=== PATIENT | male | born 1960 | race African-American/Black ===

== ENCOUNTER → 2017-07-22 10:10 | Outpatient (CLI) | payer OTHER, SELFPAY ==
--- NOTE | 2017-07-22 10:18 | RAD_ITS ---
STUDY: X-RAY - ABDOMEN/PELVIS REASON FOR EXAM: Male, 56 years old. Pain TECHNIQUE: Two AP supine views of the abdomen and pelvis. COMPARISON: None. FINDINGS: Normal visualized lung bases. There is a moderate amount of colonic fecal material. There is no demonstrated free abdominal air. The visualized liver, spleen and kidneys are grossly normal in size and morphology. Normal soft tissue structures. Normal visualized osseous structures. RAD/Abdomen Single View IMPRESSION: Mild constipation. Electronically Signed: Keith Shipley DO at 21:58 EST , Service support ,
== END ==
PROVIDERS: Family Provider Family Medicine; PCP Family Medicine; Visit Provider Family Medicine
DX: K59.00 Constipation, unspecified (principal)
CPT/HCPCS: 74018

== ENCOUNTER → 2017-10-10 09:14 | Outpatient (CLI) | payer OTHER, SELFPAY ==
[2017-10-10 09:18] LABS: Bacteria 0 SEEN /hpf (None Seen); Mucous, Urine 0 SEEN /hpf (<or=2+); Red Blood Cells-Urine 0 SEEN /hpf (0-5); Squamous Epithelial Cells - UA 0 SEEN /hpf (0-5)
[2017-10-10 12:12] LABS: Color, Urine Yellow (Yellow); Glucose, Dipstick Normal (Normal); Ketone-Dipstick Negative (Negative); Leukocyte Esterase-Dipstick Negative /ul (Negative); Nitrite-Dipstick Negative (Negative); Occult Blood-Urine Negative /ul (Negative); Protein-Dipstick 30 mg/dl (Negative); Specific Gravity, Urine 1.015 (1.002-1.030); Urine Bilirubin Dipstick Negative (Negative); Urine Clarity Clear (Clear); Urine Urobilinogen 1 mg/dl (Normal); Urine pH 6.5 (5.0 - 8.0)
[2017-10-10 12:19] LABS: Absolute Lymphocyte Count 1.72 X10^3/ul (0.83-4.51); Absolute Neutrophil Count 2.2 X10^3/uL (2.0-7.7); Basophil# 0.01 X10^3/uL; Basophil% 0.2 % (0-1); Eosinophil# 0.13 X10^3/uL; Eosinophils% 2.7 % (0-5); Hematocrit 47.9 % (40-54); Hemoglobin 16.3 g/dl (13.0-16.5); Lymphocyte # 1.72 X10^3/ul (4.0); Lymphocyte % 35.1 % (19-41); Mean Corpuscular Hgb 31.5 pg (27.0-32.0); Mean Corpuscular Volume 92.6 fL (80-94); Mean Platelet Vol. 10.6 fl (6.2-12.0); Monocyte# 0.88 X10^3/uL; Neutrophil # 2.15 X10^3/uL (2.7-7.7); Neutrophil % 43.8 % (47-70); Platelet Count 259 K/mm3 (150-450); RBC Distribution Width CV 13.5 % (11.6-14.6); RBC Distribution Width SD 45.1 fl (35.1-43.9); Red Blood Count 5.17 M/mm3 (4.6-6.2); White Blood Count 4.9 K/mm3 (4.4-11.0)
[2017-10-10 12:20] LABS: White Blood Cells 0-5 SEEN /hpf (0-5)
[2017-10-10 12:29] LABS: ALB/GLOB Ratio 0.8 RATIO (0.9-2.4); AST(SGOT) 14 U/L (15-37); Alanine Aminotransfer ALT/SGPT 41 U/L (16-61); Albumin, Serum 3.5 g/dL (3.2-5.0); Alkaline Phosphatase 80 U/L (45-117); Anion Gap 7 (5-15); BUN 12 mg/dL (7-18); BUN/Creat Ratio 9.7 RATIO (10-20); Calcium,Total 8.7 mg/dL (8.5-10.1); Chloride 105 mmol/L (98-107); Cholesterol 247 mg/dL (200); Creatinine, Serum 1.24 mg/dL (0.70-1.30); EST Glomerular Filtration Rate 64 mL/min (>60); Est Glom Filt Rate - Afr Amer 78 mL/min (>60); Globulin 4.2 g/dL (2.2-4.2); Glucose 147 mg/dL (74-106); High Density Lipoprotein 49 mg/dL; Potassium 4.1 mmol/L (3.5-5.1); Protein, Total 7.7 g/dL (6.4-8.2); Sodium Level 140 mmol/L (136-145); Triglycerides 133 mg/dL; Very Low Density Lipoprotein 27 mg/dL (5-40)
[2017-10-10 12:31] LABS: POSITIVE COUNT NO; POSITIVE DIFFERENTIAL NO; POSITIVE MORPHOLOGY NO
[2017-10-10 12:35] LABS: Microalbumin:Creatinine Ratio 9.7 mg/g CRE (<30 mg/g CRE)
[2017-10-10 13:02] LABS: Hemoglobin A1c 7.7 % (4.2-6.3)
== END ==
PROVIDERS: Family Provider Family Medicine; PCP Family Medicine; Visit Provider Family Medicine
DX: I10 Essential (primary) hypertension (principal); E11.9 Type 2 diabetes mellitus without complications; N52.9 Male erectile dysfunction, unspecified; R51 Headache; R42 Dizziness and giddiness
CPT/HCPCS: 36415; 80053; 80061; 81001; 82043; 82570; 83036; 85025

== ENCOUNTER → 2019-01-08 09:32 | Outpatient (CLI) | payer OTHER, SELFPAY ==
[2019-01-08 12:42] LABS: Hemoglobin A1c 7.2 % (4.2-6.3); Vitamin B12 947 pg/mL (211-911)
[2019-01-08 12:57] LABS: Absolute Lymphocyte Count 1.92 X10^3/uL (0.83-4.51); Absolute Neutrophil Count 2.8 X10^3/uL (2.0-7.7); Basophil# 0.01 X10^3/uL; Basophil% 0.2 % (0-1); Eosinophils% 1.8 % (0-5); Hematocrit 48.8 % (40-54); Hemoglobin 16.6 g/dL (13.0-16.5); Lymphocyte # 1.92 X10^3/ul (4.0); Lymphocyte % 34.4 % (19-41); Mean Corpuscular Hgb 31.7 pg (27.0-32.0); Mean Corpuscular Volume 93.3 fL (80-94); Mean Platelet Vol. 10.4 fl (6.2-12.0); Monocyte# 0.77 X10^3/uL; Monocyte% 13.8 % (0-10); NRBC Flagged by Analyzer 0 % (0-5); Neutrophil # 2.76 X10^3/uL (2.7-7.7); Neutrophil % 49.4 % (47-70); Platelet Count 305 K/mm3 (150-450); RBC Distribution Width CV 13.1 % (11.6-14.6); RBC Distribution Width SD 44.8 fl (35.1-43.9); Red Blood Count 5.23 M/mm3 (4.6-6.2); White Blood Count 5.6 K/mm3 (4.4-11.0)
[2019-01-08 12:59] LABS: ALB/GLOB Ratio 0.8 RATIO (0.9-2.4); AST(SGOT) 8 U/L (15-37); Alanine Aminotransfer ALT/SGPT 26 U/L (16-61); Albumin, Serum 3.5 g/dL (3.2-5.0); Alkaline Phosphatase 88 U/L (45-117); Anion Gap 10 (5-15); BUN 13 mg/dL (7-18); BUN/Creat Ratio 9.1 RATIO (10-20); Calcium,Total 8.9 mg/dL (8.5-10.1); Chloride 103 mmol/L (98-107); Cholesterol 253 mg/dL (200); Creatinine, Serum 1.43 mg/dL (0.70-1.30); EST Glomerular Filtration Rate 54 mL/min (>60); Est Glom Filt Rate - Afr Amer 66 mL/min (>60); Globulin 4.6 g/dL (2.2-4.2); Glucose 137 mg/dL (74-106); High Density Lipoprotein 61 mg/dL; Microalbumin,Random Urine 14.9 mg/L (NO RANGE EST.); Microalbumin:Creatinine Ratio 14.1 mg/g CRE (<30 mg/g CRE); Potassium 3.3 mmol/L (3.5-5.1); Protein, Total 8.1 g/dL (6.4-8.2); Sodium Level 140 mmol/L (136-145); Thyroid Stim Hormone (TSH) 1.75 uIU/mL (0.358-3.74); Triglycerides 124 mg/dL; Very Low Density Lipoprotein 25 mg/dL (5-40)
== END ==
PROVIDERS: Family Provider Family Medicine; PCP Family Medicine; Visit Provider Family Medicine
DX: Z00.00 Encounter for general adult medical examination without abnormal findings (principal); Z51.81 Encounter for therapeutic drug level monitoring; Z12.5 Encounter for screening for malignant neoplasm of prostate; E11.9 Type 2 diabetes mellitus without complications; R53.83 Other fatigue
CPT/HCPCS: 36415; 80053; 80061; 82043; 82570; 82607; 83036; 84153; 84443; 85025; G0103

== ENCOUNTER → 2020-02-29 14:36 | Outpatient (CLI) | payer OTHER, SELFPAY ==
[2020-02-29 17:03] LABS: Absolute Lymphocyte Count 2.24 X10^3/uL (0.83-4.51); Absolute Neutrophil Count 3.3 X10^3/uL (2.0-7.7); Basophil# 0.01 X10^3/uL; Basophil% 0.2 % (0-1); Eosinophil# 0.08 X10^3/uL; Eosinophils% 1.2 % (0-5); Hematocrit 46.4 % (40-54); Hemoglobin 15.9 g/dL (13.0-16.5); Lymphocyte # 2.24 X10^3/ul (4.0); Lymphocyte % 34.8 % (19-41); Mean Corp Hgb Conc 34.3 g/dL (32-36); Mean Corpuscular Hgb 31.7 pg (27.0-32.0); Mean Corpuscular Volume 92.6 fL (80-94); Mean Platelet Vol. 10.8 fl (6.2-12.0); Monocyte# 0.77 X10^3/uL; NRBC Flagged by Analyzer 0 % (0-5); Neutrophil # 3.31 X10^3/uL (2.7-7.7); Neutrophil % 51.3 % (47-70); Platelet Count 273 K/mm3 (150-450); RBC Distribution Width CV 13.3 % (11.6-14.6); Red Blood Count 5.01 M/mm3 (4.6-6.2); White Blood Count 6.4 K/mm3 (4.4-11.0)
[2020-02-29 17:33] LABS: ALB/GLOB Ratio 0.8 RATIO (0.9-2.4); AST(SGOT) 14 U/L (15-37); Alanine Aminotransfer ALT/SGPT 35 U/L (16-61); Albumin, Serum 3.8 g/dL (3.2-5.0); Alkaline Phosphatase 83 U/L (45-117); Anion Gap 7 (5-15); BUN 13 mg/dL (7-18); BUN/Creat Ratio 11.2 RATIO (10-20); Calcium,Total 9.6 mg/dL (8.5-10.1); Chloride 100 mmol/L (98-107); Cholesterol 297 mg/dL (200); Creatinine, Serum 1.16 mg/dL (0.70-1.30); EST Glomerular Filtration Rate 69 mL/min (>60); Est Glom Filt Rate - Afr Amer 83 mL/min (>60); Globulin 4.9 g/dL (2.2-4.2); Glucose 111 mg/dL (74-106); High Density Lipoprotein 79 mg/dL; Potassium 3.7 mmol/L (3.5-5.1); Protein, Total 8.7 g/dL (6.4-8.2); Sodium Level 137 mmol/L (136-145); Triglycerides 103 mg/dL; Very Low Density Lipoprotein 21 mg/dL (5-40)
[2020-02-29 17:40] LABS: Hemoglobin A1c 6.8 % (3.8-5.6)
[2020-02-29 18:22] LABS: Microalbumin,Random Urine 11.6 mg/L (NO RANGE EST.); Microalbumin:Creatinine Ratio 12.1 mg/g CRE (<30 mg/g CRE)
== END ==
LOC: BFHLAB 14:42
PROVIDERS: PCP Family Medicine; Visit Provider Family Medicine
DX: E11.9 Type 2 diabetes mellitus without complications (principal); I10 Essential (primary) hypertension; E78.5 Hyperlipidemia, unspecified; Z87.898 Personal history of other specified conditions
CPT/HCPCS: 36415; 80053; 80061; 82043; 82570; 83036; 84153; 85025; G0103

== ENCOUNTER → 2020-03-28 15:57 | Outpatient (CLI) | payer OTHER, SELFPAY ==
--- NOTE | 2020-03-28 15:57 | EKG12_ITS ---
Test Reason : PRE OP Blood Pressure : / mmHG Vent. Rate : 081 BPM Atrial Rate : 081 BPM P-R Int : 162 ms QRS Dur : 074 ms QT Int : 362 ms P-R-T Axes : 063 -06 017 degrees QTc Int : 420 ms Normal sinus rhythm Septal infarct , age undetermined Abnormal ECG Confirmed by OLY SIMEON, ALEXANDRA ([id number]), online content editor DINAH FLORES ([id number]) on 03/29/2020 1:11:59 PM Referred By: Ramón Stevens Confirmed By:ALEXANDRA ALDRIDGE MD
[2020-03-28 16:45] LABS: Hematocrit 46.8 % (40-54); Hemoglobin 15.8 g/dL (13.0-16.5); Mean Corp Hgb Conc 33.8 g/dL (32-36); Mean Corpuscular Hgb 30.9 pg (27.0-32.0); Mean Corpuscular Volume 91.4 fL (80-94); Mean Platelet Vol. 10.1 fl (6.2-12.0); Platelet Count 280 K/mm3 (150-450); RBC Distribution Width CV 13.4 % (11.6-14.6); RBC Distribution Width SD 45.9 fl (35.1-43.9); Red Blood Count 5.12 M/mm3 (4.6-6.2); White Blood Count 5.7 K/mm3 (4.4-11.0)
[2020-03-28 17:21] LABS: Anion Gap 7 (5-15); BUN 11 mg/dL (7-18); BUN/Creat Ratio 9.1 RATIO (10-20); Calcium,Total 9.1 mg/dL (8.5-10.1); Chloride 105 mmol/L (98-107); Creatinine, Serum 1.21 mg/dL (0.70-1.30); EST Glomerular Filtration Rate 66 mL/min (>60); Est Glom Filt Rate - Afr Amer 79 mL/min (>60); Glucose 143 mg/dL (74-106); Potassium 3.2 mmol/L (3.5-5.1); Sodium Level 139 mmol/L (136-145)
== END ==
PROVIDERS: PCP Family Medicine; Referring Provider Urology; Visit Provider Urology
DX: Z01.812 Encounter for preprocedural laboratory examination (principal); E11.9 Type 2 diabetes mellitus without complications; I10 Essential (primary) hypertension
CPT/HCPCS: 36415; 80048; 85027; 87635; 93005; C9803; U0003

== ENCOUNTER → 2020-04-01 15:16 | Outpatient (CLI) | payer OTHER, SELFPAY ==
--- NOTE | 2020-04-01 | PROSBIL_PTH ---
PATIENT: EMILIA CASEY LOC: [facility] U#:[id number] AGE/SX: 64/M ROOM: RE04/01/[address]: Dr. Ramón Stevens MD : 1960 BED: DIS: SPEC #: [id number] RECD: 04/01/20 14:51 STATUS: KOBI MIGUEL ANGEL #: [id number] SALBADOR: 04/01/20 00:[address]: Ramón Stevens DEPT: SURGICAL PATHOLOGY RECD BY: Kirk Becerra ENTERED: 04/04/20 07:22 SP TYPE: PROST BX KEIRY DR: Dr. Brady Delong, [facility] Tissues: A - PROSTATE RIGHT B - PROSTATE RIGHT C - PROSTATE RIGHT D - PROSTATE LEFT E - PROSTATE LEFT F - PROSTATE LEFT Procedures: PROSTATE BX HEADER OPERATION: Transrectal ultrasound-guided prostate biopsy PRE-OP DIAGNOSIS: Elevated PSA TISSUE SUBMITTED: A - Right base, B - Right mid, C - Right apex, D - Left base, E - Left mid, F - Left apex MICROSCOPIC DIAGNOSIS A. Right prostate, base, core biopsy: Prostatic adenocarcinoma. [place] grade: 3+3=6 Number of cores involved: 1/2 Proportion of tissue involved: <5% Perineural invasion: Not identified. Greatest tumor length: 0.1 cm Focal high-grade prostatic intraepithelial neoplasia (HGPIN). See comment. B. Right prostate, mid, core biopsy: Prostatic adenocarcinoma. Mera grade: 3+4=7 Number of cores involved: 2/2 Proportion of tissue involved: ~60% Perineural invasion: Present, focal. Greatest tumor length: 1.1 cm, discontinuous. Focal chronic inflammation. C. Right prostate, apex, core biopsy: Prostatic adenocarcinoma. Mera grade: 3+3=6 Number of cores involved: 1/2 Proportion of tissue involved: ~5% Perineural invasion: Not identified. Greatest tumor length: 0.2 cm See comment. D. Left prostate, base, core biopsy: Prostatic adenocarcinoma. [place] grade: 3+4=7 Number of cores involved: 2/2 Proportion of tissue involved: ~40% Perineural invasion: Not identified. Greatest tumor length: 0.7 cm E. Left prostate, mid, core biopsy: Prostatic adenocarcinoma. [place] grade: 3+3=6 Number of cores involved: 2/2 Proportion of tissue involved: ~20% Perineural invasion: Not identified. Greatest tumor length: 0.9 cm, discontinuous. F. Left prostate, apex, core biopsy: Prostatic adenocarcinoma. Mera grade: 3+4=7 Number of cores involved: 2/2 Proportion of tissue involved: ~80% Perineural invasion: Not identified. Greatest tumor length: 1 cm LAWRENCE:amira 04/05/20 COMMENT A & C. Immunohistochemistry ([id number]) supports the above diagnosis. MICROSCOPIC DESCRIPTION Slides are reviewed. GROSS DESCRIPTION A - Received is one container designated prostate, right base. The specimen consists of two elongated fragments of light lackey-white soft tissue measuring 0.6 and 1 cm in length and 0.1 cm in diameter. The specimen is totally submitted in one cassette. B - Received is one container designated prostate, right mid. The specimen consists of two elongated fragments of light lackey-white soft tissue each measuring 1.5 cm in length and 0.1 cm in diameter. The specimen is totally submitted in one cassette. C - Received is one container designated prostate, right apex. The specimen consists of two elongated fragments of light lackey-white soft tissue measuring 1.5 and 2 cm in length and 0.1 cm in diameter. The specimen is totally submitted in one cassette. D - Received is one container designated prostate, left base. The specimen consists of two elongated fragments of light lackey-white soft tissue measuring 1 and 1.5 cm in length and 0.1 cm in diameter. The specimen is totally submitted in one cassette. E - Received is one container designated prostate, left mid. The specimen consists of two elongated fragments of light lackey-white soft tissue measuring 0.8 and 1.4 cm in length and 0.1 cm in diameter. The specimen is totally submitted in one cassette. F - Received is one container designated prostate, left apex. The specimen consists of two elongated fragments of light lackey-white soft tissue each measuring 1.3 cm in length and 0.1 cm in diameter. The specimen is totally submitted in one cassette. / SJ:rg 04/04/20 TC:0 [facility]: [id number] x6 ADDENDUM ADDENDUM ADDENDUM ADDENDUM ADDENDUM ADDENDUM ADDENDUM ADDENDUM ADDENDUM ADDENDUM ADDENDUM ADDENDUM ADDENDUM ADDENDUM 04/21/2020 10:27 ADDENDUM 04/21/2020 10:27 ADDENDUM 04/21/2020 10:27 ADDENDUM 04/21/2020 10:27 ADDENDUM 04/21/2020 10:27 This addendum is added to incorporate an outside pathology consultation report. The case was examined at [facility] (#[id number]) and the following diagnosis was rendered. A. Prostatic adenocarcinoma, Mera score 3+3=6, involving 1 of 2 cores and 5% tissue. B. Prostatic adenocarcinoma, Mera score 3+4=7, involving 2 of 2 cores and 70% tissue. C. Prostatic adenocarcinoma, Mera score 3+3=6, involving 1 of 2 cores and 5% tissue. D. Prostatic adenocarcinoma, [place] score 3+4=7, involving 2 of 2 cores and 70% tissue. E. Prostatic adenocarcinoma, Mera score 3+3=6, involving 2 of 2 cores and 10% tissue. High grade PIN present. F. Prostatic adenocarcinoma, Mera score 3+4=7, involving 2 of 2 cores and 90% tissue. Please see complete above mentioned consultation report in EMR
--- NOTE | 2020-04-01 | IMM_PTH ---
PATIENT: EMILIA CASEY LOC: [facility] U#:[id number] AGE/SX: 64/M ROOM: RE04/01/[address]: Dr. Ramón Stevens MD : 1960 BED: DIS: SPEC #: [id number] RECD: 04/05/20 13:30 STATUS: TANYAPuneet REQ #: [id number] SALBADOR: 04/01/20 00:[address]: Ramón Stevens DEPT: IMMUNOHISTOCHEMISTRY RECD BY: Ayana Bryson ENTERED: 04/05/20 13:31 SP TYPE: IMMUNO OTHR DR: Dr. Brady Delong DO Tissues: A - PROSTATE RIGHT C - PROSTATE RIGHT Procedures: 34BE12 (add) P40 (add) 34BE12 (initial) PHYSICIAN & INSTITUTION [place] [id number] SPECIMEN INFORMATION: Tissue Source: A - Right prostate, base, core biopsy, C - Right prostate, apex, core biopsy Clinical Info: Elevated PSA Specimen Number: [id number] A & C CPT code: 24830, 25157 x3 METHODOLOGY: Deparaffinized sections of prefer/formalin-fixed tissue or PAP/DQ stained slides are incubated with monoclonal/polyclonal antibodies/oligonucleotide probes. Localization is made via biotin free immunoperoxidase method. Appropriate controls are performed and reacted as expected. Results on target cell population are indicated in the following table: RESULTS: ANTIBODY / CLONE RESULT Block A P40 (BC28) negative 34BE12 (34BE12) negative Block C P40 (BC28) negative 34BE12 (34BE12) negative These tests were developed and their performance characteristics determined by [facility]. They may not have been cleared or approved by the U.S. Food and Drug Administration. The FDA has determined that such clearance or approval is not necessary. The above immunohistochemical/dualISH markers are ordered and reviewed by the Pathologist. INTERPRETATION: A. Right prostate, base, core biopsy: Adenocarcinoma. C. Right prostate, apex, core biopsy: Adenocarcinoma. SJ:amira 04/06/20
== END ==
PROVIDERS: PCP Family Medicine; Referring Provider Urology; Visit Provider Urology
DX: R97.20 Elevated prostate specific antigen [PSA] (principal)
CPT/HCPCS: 88305; 88341; 88342; G0416

== ENCOUNTER → 2020-04-08 14:23 | Outpatient (CLI) | payer OTHER, SELFPAY ==
--- NOTE | 2020-04-08 14:26 | CT_ITS ---
STUDY: CT ABDOMEN AND PELVIS WITHOUT CONTRAST REASON FOR EXAM: Male, 59 years old. MALIGNANT NEOPLASM RADIATION DOSAGE (If Supplied By Facility): CTDIvol = ( 13.19 ) mGy, DLP = ( 894.82 ) mGycm TECHNIQUE: Transaxial images were obtained from the dome of the diaphragm to the symphysis pubis without oral contrast, and without intravenous contrast. Sagittal and coronal images were reconstructed. Individualized dose optimization techniques were used for this CT. COMPARISON: None. FINDINGS: The visualized lung bases are unremarkable. The visualized portions of the heart are within normal limits. Normal liver. The gallbladder is contracted. Normal spleen. Normal pancreas. Normal bilateral adrenal glands. Normal right kidney. Normal left kidney. Normal visualized stomach. Normal small intestine. Normal colon. There is non-visualization of the appendix. Normal abdominal aorta. Normal inferior vena cava. Normal retroperitoneum. Diffuse bladder wall thickening. Correlation with cystoscopy would be useful. Normal abdominal wall. Normal osseous structures. CT/Abdomen/Pelvis W IV Cont ONLY IMPRESSION: Diffuse bladder wall thickening. Correlation with cystoscopy would be useful. Electronically Signed: Tian Lamas MD at 15:24 EDT Tel , Service support ,
== END ==
LOC: CT 14:23
PROVIDERS: PCP Family Medicine; Referring Provider Urology; Visit Provider Urology
DX: C61 Malignant neoplasm of prostate (principal)
CPT/HCPCS: 74177; Q9967

== ENCOUNTER → 2020-04-13 08:34 | Outpatient (CLI) | payer OTHER, SELFPAY ==
--- NOTE | 2020-04-13 08:44 | NM_ITS ---
CLINICAL: 59-year-old male with reported history of primary prostate carcinoma. WHOLE BODY 99m Tc MDP RADIONUCLIDE BONE SCINTIGRAPHY COMPARISON: CT of the abdomen-pelvis report 04/08/2020 FINDINGS: Following the intravenous administration of 25.2 mCi of 99m Tc MDP, whole body bone images reveal: 1. Increased radiopharmaceutical concentration is defined in the bilateral hands, right wrist, the acromioclavicular and sternoclavicular compartments of both shoulders, mid cervical spine posteriorly on the left, the left forefoot. 2. The remaining skeletal structures are scintigraphically unremarkable with normal-appearing renal images and urinary bladder activity identified. Facilitated uptake is demonstrated in the right mandible and bilateral maxilla most consistent with periodontal disease and/or periostitis. NM/Bone Scan Whole Body IMPRESSION: 1. The increase in tracer concentration identified in the right-left hands, right wrist, bilateral shoulders, cervical spine and left forefoot is most consistent with degenerative arthritis. 2. There is no definitive typical scintigraphic evidence of diffuse axial skeletal metastatic disease on the current examination. Electronically Signed: Tian Bowman DO at 22:45 EDT Tel , Service support ,
== END ==
PROVIDERS: PCP Family Medicine; Referring Provider Urology; Visit Provider Urology
DX: C61 Malignant neoplasm of prostate (principal)
CPT/HCPCS: 78306

== ENCOUNTER 2020-06-01 11:44 | Day surgery (SDC) | payer OTHER, SELFPAY ==
[2020-04-28 15:14] VITALS: BMI 30.6
[2020-06-01 12:33] VITALS: BP 129/87; PULSE 79; RESP 16; TEMP 37.1; O2SAT 97; BMI 30.8
[2020-06-01] MEDS: Lactated Ringers 1,000 ML 100 ML IV (12:38)
[2020-06-01 13:40] LABS: Bedside Glucose 137 mg/dL (70-110)
[2020-06-01] MEDS: Cefazolin 2 GM in 0.9% Normal Saline 100 ML IV (14:28)
--- NOTE | 2020-06-01 14:36 | PCM.HP.STD ---
History of Present Illness Date of Admission: 06/01/20 Chief Complaint: Prostate cancer The patient is a 59 year old male with prostate cancer is elected undergo treatment with radiation therapy today were to place a spacer gel and gold markers in the prostate. Past Medical History Medical History: Medical History (Last Updated 04/28/20 @ 15:14 by Maria Teresa Escobar RN) Abnormal prostate biopsy R89.7 Diabetes E11.9 High cholesterol E78.00 Prostate cancer C61 HTN (hypertension) I10 Allergies No Known Allergies Allergy (Verified 06/01/20 12:18) Home Medications: Ambulatory Orders Medication Instructions Recorded Atorvastatin Calcium [Lipitor] 10 mg PO QHS 04/28/20 Hydrochlorothiazide [Hctz] 25 mg PO DAILY 04/28/20 Metformin HCl [Glucophage] 500 mg PO DAILY 04/28/20 Amlodipine Besylate 10 mg PO DAILY 05/25/20 Surgical History: no surgical history Smoking Status: Never smoker Tobacco Use: Non-smoker Review of Systems Constitutional: Denies: Chills, Fever, Weight Change HEENT: Denies: Head Aches, Sinus Congestion, Sinus Drainage Cardiovascular: Denies: Chest Pain, Palpitations Respiratory: Denies: Cough, Shortness of breath at rest, Sputum production Gastrointestinal: Denies: Abdominal Pain, Nausea, Vomiting Genitourinary: Denies: Dysuria Musculoskeletal: Denies: Joint Pain, Joint Tenderness Skin: Denies: Rash, Wounds Neurological: Denies: Numbness, Tingling, Focal weakness Psychiatric: Denies: Anxiety, Depression, Homicidal Ideations, Suicidal Ideations Hematologic/ Lymphatic: Denies: Easy Bruising, Easy Bleeding VTE Information - Inpt Only VTE Present on Admission: No VTE Mechan Device Prophylaxis: SCD's - Physical Exam Vitals/I&O's: Vital Signs Temp Pulse Resp BP Pulse Ox 98.8 F 79 16 129/87 H 97 06/01/20 12:33 06/01/20 12:33 06/01/20 12:33 06/01/20 12:33 06/01/20 12:33 Oxygen Delivery Method Room Air Weight: 89.2 kg Body Mass Index (BMI) 30.8 General: Alert, Oriented x3, Cooperative HEENT: Atraumatic, PERRLA, EOMI, Normocephalic Neck: Supple, No JVD, Negative Carotid Bruits Lungs: Clear to auscultation, Normal air movement Cardiovascular: Regular rate, No murmurs Abdomen: Bowel Sounds Present, Soft, Non Tender Extremities: No edema, Capillary Refill Less than 3 Seconds Skin: No rashes, No breakdown Musculoskeletal: No Tenderness to Palpation of Joints or Extremities Neurological: Cranial nerves II-XII grossly intact Psych/Mental Status: Normal Affect, Appropriate Microbiology Past 72 Hours 05/31/20 08:41 Interface Orders SARS-CoV-2 Antigen (Rapid) - Final Laboratory Results 06/01/20 12:26: POC Glucose 137 H Current Medications Lactated Ringer's () 1,000 mls @ 100 mls/hr IV .Q10H AN Last Admin: 06/01/20 12:38 Dose: 100 mls/hr Documented by: Assessment/Plan Plan to proceed placement of gold markers for prostate radiation and spacer organ at risk gel matrix
--- NOTE | 2020-06-01 14:39 | DCINST_ITS ---
Discharge Diet: Light diet - advance as tolerated Discharge Activity: May not drive while taking narcotic pain medications. Return to work on:: 06/03/20 May resume sexual activity in: No Restrictions Allergies/Adverse Reactions: Allergies No Known Allergies Allergy (Verified 06/01/20 12:18) Medications to take at Discharge Atorvastatin Calcium [Lipitor] 10 mg PO QHS 04/28/20 Hydrochlorothiazide [Hctz] 25 mg PO DAILY 04/28/20 Metformin HCl [Glucophage] 500 mg PO DAILY 04/28/20 Amlodipine Besylate 10 mg PO DAILY 05/25/20 Primary Care Physician: Brady Delong DO [Primary Care Provider] - Test Results: Test results from this visit will be discussed in further detail at your follow- up appointment, if applicable. Please Follow Up With: Ramón Stevens MD When: please call to make an appointment.
--- NOTE | 2020-06-01 14:55 | OP.PCM_ITS ---
Report of Operation Date of Procedure: 06/01/20 Pre-Operative Diagnosis: Prostate cancer Post-Operative Diagnosis: Same Surgery/Procedure Performed:: Transrectal ultrasound-guided placement of gold fiducial markers in the prostate, transrectal ultrasound-guided placement of spacer organ risk gel matrix between the prostate and the rectum. Description of Surgical Findings:: Patient was taken back to the operating room after induction of anesthesia, he was placed in dorsolithotomy position. The patient has had a bowel prep. He was given IV antibiotics preoperatively. He underwent a timeout procedure in the operating room. He was marked and the procedure was reviewed with the operating room staff. Once he was in dorsolithotomy position. The genitals and perineum were prepped and draped in the usual sterile fashion. I then introdu eleno a biplanar ultrasound probe into the rectum and performed ultrasonography on the prostate. The prostate seminal vesicles, the base, the mid prostate, the apex were identified. The Denonvilliers' fascia was also identified. I first advanced the first marker in the patient's right side to the mid prostate and deployed the first buttonhole marker. The second buttonhole marker was then advanced under ultrasound guidance to the patient's left mid prostate and the base. And finally the third buttonhole marker was advanced of the prostate left apex and deployed under ultrasound guidance. All 3 markers were confirmed to be present within the prostate on ultrasonography. I then gentally intruduced a biplanar ultrasound probe into the rectum and performed ultrasonography and identified the Denonvilliers' fascia the prostate mid base and apex and seminal vesicles. The spacer gel mix was then prepared on the back table. 6 cc of the blue cartridge was injected into the blue solution. And then pulled back to 5 cc. We then pulled back 5 cc of the other solution we attached the 2 bottles together with the adapter provided in the kit. And then we prepared the injection. Under ultrasound guidance in the midline with a bevel needle down we advanced the needle through the perineum below the prostate into the space of Denonvilliers' fascia this is a space which could identify an ultrasound is a bright white area between the prostate and the rectum. A injection of normal saline was done to identify the space further. After I confirmed that the needle was in the correct space in the mid prostate and the space of Denonvilliers' fascia between the rectum and the prostate. Then over the course of 15 seconds the gel matrix was injected slowly there was nice separation between the prostate and the rectum at the gel matrix was injected. At the end of the injection the needle was removed intact. Patient's perineum was cleaned patient was taken out of stirrups and then taken back to the PACU in good condition after successful injection of the spacer organ at risk gel matrix. Type of Anesthesia:: General - Admit VTE Documentation VTE Present on Admission: No VTE Mechan Device Prophylaxis: SCD's
[2020-06-01 15:05] VITALS: BP 116/83; BP 129/87; PULSE 71; RESP 16; TEMP 36.1; O2SAT 95
[2020-06-01 15:15] VITALS: BP 117/86; BP 129/87; PULSE 79; RESP 14; O2SAT 93
[2020-06-01] MEDS: Ketorolac 15 MG/ML Vial IV (15:18)
[2020-06-01 15:30] VITALS: BP 111/85; BP 129/87; PULSE 72; RESP 16; O2SAT 94
[2020-06-01 15:40] VITALS: BP 113/85; BP 129/87; PULSE 69; RESP 14; TEMP 36.5; O2SAT 96
[2020-06-01 16:23] VITALS: BP 129/87
== END 2020-06-01 16:44 | disposition home or self-care (01) ==
LOC: SDC 11:46 → AC 11:46
PROVIDERS: PCP Family Medicine; Referring Provider Urology; Visit Provider Urology
PROC: (CPT 55874; principal; 2020-06-01 14:00)
DX: C61 Malignant neoplasm of prostate (principal); Z20.828 Contact with and (suspected) exposure to other viral communicable diseases; E11.9 Type 2 diabetes mellitus without complications; E78.00 Pure hypercholesterolemia, unspecified; I10 Essential (primary) hypertension; Z79.899 Other long term (current) drug therapy; Z79.84 Long term (current) use of oral hypoglycemic drugs; K21.9 Gastro-esophageal reflux disease without esophagitis
CPT/HCPCS: 00902; 55876; 76942; 82962; 87426; C9803; J7120; J2405

== ENCOUNTER → 2020-06-07 12:42 | Outpatient (CLI) | payer OTHER, SELFPAY ==
[2020-04-28 15:14] VITALS: BMI 30.6
[2020-06-01 12:33] VITALS: BMI 30.8
--- NOTE | 2020-06-07 12:46 | MRI_ITS ---
STUDY: MR PELVIS WITHOUT CONTRAST (PROSTATE) REASON FOR EXAM: Male, 59 years old. Intermediate risk prostate cancer, therapy planning TECHNIQUE: Standardized multiparametric prostate MRI with T1, T2, DWI/ADC sequences were obtained in 3 orthogonal planes. No IV contrast. COMPARISON: CT 04/08/2020, bone scan 04/13/2020 FINDINGS: The prostate volume measures 51 mm3. The contours of the prostate gland are lobulated. There is mass effect on the bladder base. Elliptical hyperintense T2, hypointense T1 collection posterior to the prostate gland (interposed between prostate and rectum) likely represents small hematoma related to prior transrectal biopsy. The transition zone is heterogenous. Limited assessment on DWI due to lack of ADC map. PI-RADS T2W score 2 - A mostly encapsulated nodule OR a homogeneous circumscribed nodule without encapsulation (atypical nodule) or a homogeneous mildly hypointense area between nodules.. Contrast enhancement not assessed. The peripheral zone is heterogenous. There are a few scattered areas of increased T1 signal intensity along the left lateral peripheral zone is likely related to previous biopsy. PI-RADS DWI score 3 - Focal (discrete and different from the background) mildy hyperintense high b-value DWI. PI-RADS T2W score 3 - Noncircumscribed, rounded, mild hypointensity. Contrast enhancement not assessed. The seminal vesicles demonstrate multiple small cysts/dilated tubules. No mass lesion or invasion depicted. The rectoprostatic angles are normal. Urinary bladder is normal without wall thickening. The vascular structures of the are normal. The visualized hollow viscus structures are normal. No bone marrow edema or mass lesion depicted. MRI/Pelvis (Routine) IMPRESSION: 1. PIRADS v2.1 2019 -- 3 - Intermediate (clinically significant cancer is equivocal) Limited assessment given lack of IV contrast and ADC map. 2. Small localized fluid posterior to the prostate gland and focal areas of T1 hyperintensity within the prostate compatible with recent prostate procedure/biopsy. 3. No pelvic sidewall or periprostatic adenopathy. Electronically Signed: Anastacio Bautista MD ([place]) at 8:13 EST , Service support ,
== END ==
PROVIDERS: PCP Family Medicine; Referring Provider Student in an Organized Health Care Education/Training Program; Visit Provider Student in an Organized Health Care Education/Training Program
DX: C61 Malignant neoplasm of prostate (principal)
CPT/HCPCS: 72195

== ENCOUNTER 2020-08-22 18:12 | Inpatient (IN) | payer OTHER, SELFPAY ==
[2020-04-28 15:14] VITALS: BMI 30.6
[2020-08-22] VITALS (10 sets, daily range): BP systolic 104–140; BP diastolic 71–88; PULSE 86–102; RESP 14–18; TEMP 36.7–37.2; O2SAT 92–100; BMI 29.5; BMI 29.3
--- NOTE | 2020-08-22 17:17 | NURSING ---
Dr. carmona paged as pt arrived requesting pain meds
--- NOTE | 2020-08-22 17:24 | EKG12_ITS ---
Test Reason : PRE OP Blood Pressure : / mmHG Vent. Rate : 092 BPM Atrial Rate : 092 BPM P-R Int : 158 ms QRS Dur : 078 ms QT Int : 338 ms P-R-T Axes : 066 007 031 degrees QTc Int : 417 ms Normal sinus rhythm Normal ECG Confirmed by OLY SIMEON, ALEXANDRA ([id number]), field map editor RIVKA MEDINA ([id number]) on 08/24/2020 11:24:58 AM Referred By: VALENTIN Confirmed By:ALEXANDRA ALDRIDGE MD
[2020-08-22] MEDS: 0.9% Normal Saline 1,000 ML 75 ML IV (17:52)
[2020-08-22] MEDS: 0.9% Saline Lock 10 ML Syringe IV (17:52)
[2020-08-22] MEDS: Morphine 2 MG/ML Syringe IV ×2 (17:52→20:46)
[2020-08-22 17:59] LABS: Absolute Lymphocyte Count 0.34 X10^3/uL (0.83-4.51); Absolute Neutrophil Count 12.5 X10^3/uL (2.0-7.7); Basophil# 0.03 X10^3/uL; Basophil% 0.2 % (0-1); Eosinophil# 0.22 X10^3/uL; Eosinophils% 1.5 % (0-5); Hematocrit 37.5 % (40-54); Hemoglobin 12.5 g/dL (13.0-16.5); Lymphocyte # 0.34 X10^3/ul (4.0); Lymphocyte % 2.3 % (19-41); Mean Corp Hgb Conc 33.3 g/dL (32-36); Mean Corpuscular Hgb 30.7 pg (27.0-32.0); Mean Corpuscular Volume 92.1 fL (80-94); Mean Platelet Vol. 8.9 fl (6.2-12.0); Monocyte# 1.49 X10^3/uL; Monocyte% 10.2 % (0-10); NRBC Flagged by Analyzer 0 % (0-5); Neutrophil # 12.46 X10^3/uL (2.7-7.7); Neutrophil % 84.9 % (47-70); POSITIVE DIFFERENTIAL YES; Platelet Count 412 K/mm3 (150-450); RBC Distribution Width CV 12.6 % (11.6-14.6); RBC Distribution Width SD 42.5 fl (35.1-43.9); Red Blood Count 4.07 M/mm3 (4.6-6.2); White Blood Count 14.7 K/mm3 (4.4-11.0)
[2020-08-22 18:09] LABS: Differential Indicated SCAN CRITERIA MET
--- NOTE | 2020-08-22 18:09 | PCM.HP.STD ---
Problem List (1) Scrotal abscess Status: Acute History of Present Illness Date of Admission: 08/22/20 Chief Complaint: Scrotal abscess The patient is a 59 year old male who last week presented with a severe epididymoorchitis put him on antibiotics comes in for checkup today he has fluctuance and severe pain in the bottom of the scrotum on the left side consistent with a scrotal abscess that is developed we have taken to surgery today for incision and drainage of the scrotal abscess. Past Medical History Medical History: Medical History (Last Reviewed 08/22/20 @ 18:[address] Ramón Stevens MD) Abnormal prostate biopsy R89.7 Diabetes E11.9 High cholesterol E78.00 Prostate cancer C61 HTN (hypertension) I10 Allergies No Known Allergies Allergy (Verified 07/27/20 15:27) Home Medications: Ambulatory Orders Medication Instructions Recorded Atorvastatin Calcium [Lipitor] 20 mg PO QHS 04/28/20 Hydrochlorothiazide [Hctz] 25 mg PO DAILY 04/28/20 Metformin HCl [Glucophage] 500 mg PO BID 04/28/20 Amlodipine Besylate 10 mg PO DAILY 05/25/20 Tamsulosin HCl [Flomax] 0.4 mg PO BID #60 cap 07/30/20 Ciprofloxacin HCl 500 mg PO BID 08/22/20 Naproxen 500 mg PO BID 08/22/20 Surgical History: no surgical history Smoking Status: Never smoker Review of Systems Constitutional: Denies: Chills, Fever, Weight Change HEENT: Denies: Head Aches, Sinus Congestion, Sinus Drainage Cardiovascular: Denies: Chest Pain, Palpitations Respiratory: Denies: Cough, Shortness of breath at rest, Sputum production Gastrointestinal: Denies: Abdominal Pain, Nausea, Vomiting Genitourinary: Denies: Dysuria Musculoskeletal: Denies: Joint Pain, Joint Tenderness Skin: Denies: Rash, Wounds Neurological: Denies: Numbness, Tingling, Focal weakness Psychiatric: Denies: Anxiety, Depression, Homicidal Ideations, Suicidal Ideations Hematologic/ Lymphatic: Denies: Easy Bruising, Easy Bleeding VTE Information - Inpt Only VTE Present on Admission: No VTE Mechan Device Prophylaxis: SCD's - Physical Exam Vitals/I&O's: Weight: 82.8 kg Body Mass Index (BMI) 29.5 General: Alert, Oriented x3, Cooperative HEENT: Atraumatic, PERRLA, EOMI, Normocephalic Neck: Supple, No JVD, Negative Carotid Bruits Lungs: Clear to auscultation, Normal air movement Cardiovascular: Regular rate, No murmurs Abdomen: Bowel Sounds Present, Soft, Non Tender Extremities: No edema, Capillary Refill Less than 3 Seconds Skin: No rashes, No breakdown Musculoskeletal: No Tenderness to Palpation of Joints or Extremities Neurological: Cranial nerves II-XII grossly intact Psych/Mental Status: Normal Affect, Appropriate Microbiology Past 72 Hours 08/22/20 17:30 Mucosa - Nose SARS-CoV-2 Antigen (Rapid) - Final Laboratory Results 08/22/20 17:50: WBC Pending, RBC Pending, Hgb Pending, Hct Pending, MCV Pending, MCH Pending, MCHC Pending, RDW Std Deviation Pending, RDW Coeff of Jonathan Pending, Plt Count Pending, Neut % (Auto) Pending, Absolute Neuts (auto) Pending 08/22/20 17:50: Sodium Pending, Potassium Pending, Chloride Pending, Carbon Dioxide Pending, Anion Gap Pending, BUN Pending, Creatinine Pending, Est GFR (MDRD) Af Amer Pending, Est GFR (MDRD) Non-Af Pending, BUN/Creatinine Ratio Pending, Glucose Pending, Calcium Pending 08/22/20 17:50: Hemoglobin A1c Pending Current Medications Sodium Chloride () 1,000 mls @ 75 mls/hr IV .[id number] [facility] Last Admin: 08/22/20 17:52 Dose: 75 mls/hr Documented by: Ceftriaxone Sodium (Rocephin) 1 gm in 50 mls @ 100 mls/hr IV Q12 [facility] Sodium Chloride () 250 mls @ 15 mls/hr IV .[id number] PRN PRN Reason: Saline Flush Sodium Chloride () 250 mls @ 15 mls/hr IV .[id number] PRN PRN Reason: Additional IVPB Infusion Morphine Sulfate (Morphine 2 Mg/Ml Syringe) 2 mg IV Q2H PRN PRN PRN Reason: Pain Score 1-10 Last Admin: 08/22/20 17:52 Dose: 2 mg Documented by: Ondansetron HCl (Ondansetron 4 Mg/2 Ml Vial) 4 mg IV Q6H PRN PRN PRN Reason: NAUSEA/VOMITING Sodium Chloride (0.9% Saline Lock 10 Ml Syringe) 10 - 40 ml IV UD PRN PRN Reason: SALINE FLUSH Last Admin: 08/22/20 17:52 Dose: 20 ml Documented by: Assessment/Plan All Active Problems (Last Updated 04/28/20 @ 15:14 by Maria Teresa Escobar RN) Scrotal abscess (Acute) 59-year-old male admitted for scrotal abscess plan to proceed to surgery for incision and drainage of scrotal abscess.
[2020-08-22] MEDS: Ceftriaxone 1 GM/50 ML BAG IV (18:12)
[2020-08-22 18:13] LABS: Anion Gap 6 (5-15); BUN 12 mg/dL (7-18); BUN/Creat Ratio 10.4 RATIO (10-20); Calcium,Total 9.4 mg/dL (8.5-10.1); Chloride 104 mmol/L (98-107); Creatinine, Serum 1.15 mg/dL (0.70-1.30); EST Glomerular Filtration Rate 70 mL/min (>60); Est Glom Filt Rate - Afr Amer 84 mL/min (>60); Estimated Creatinine Clearance 63.95 ml/min; Glucose 119 mg/dL (74-106); Potassium 3.8 mmol/L (3.5-5.1); Sodium Level 138 mmol/L (136-145)
[2020-08-22 18:18] LABS: Hemoglobin A1c 6.9 % (3.8-5.6)
[2020-08-22 18:26] LABS: Bedside Glucose 119 mg/dL (70-110)
[2020-08-22 18:42] LABS: Platelet Estimate ADEQUATE (ADEQ); Red Cell Morphology NORM C+C NORMAL (NORM C&C)
--- NOTE | 2020-08-22 19:03 | PCM.OPRPT ---
Problem List (1) Scrotal abscess Status: Acute Report of Operation Date of Procedure: 08/22/20 Pre-Operative Diagnosis: Scrotal abscess Post-Operative Diagnosis: Same Surgery/Procedure Performed:: Incision and drainage of scrotal abscess Description of Surgical Findings:: 59-year-old male who I saw earlier today in the office he had a fluctuant mass in the scrotum consistent with an abscess formation also he reports having some pus draining from the penis. Today he was brought into the hospital and we taken back to the operating room this evening for an incision and drainage of scrotal abscess. Patient was taken back to the operating room after smooth induction of general anesthesia he was placed supine on the operating room table he underwent general anesthesia with endotracheal intubation. After anesthesia was induced he was laid flat on the table we shaved and prepped the scrotum in usual sterile fashion he had a bright thick scrotum on the left side it was fluctuant. I used a 11 blade knife made an incision and immediately got purulent drainage of material from the scrotum had to extend the incision fairly long along the entire length of the left hemiscrotum probably about a 10 cm incision along the left hemiscrotum to drain all the abscess infection and pus that came out from the left hemiscrotum I then copiously irrigated out all the pus we took out all the necrotic yellowish necrotic debris at the scrotum the testicle was intact. I then use electrocautery to obtain hemostasis on the edges where the incision was made and then packed the scrotum with Betadine soaked gauze Kerlix. And then scrotal support was placed and fluffs dressings. Patient was extubated taken back to the PACU in good condition. Type of Anesthesia:: General Drains: none - Admit VTE Documentation VTE Present on Admission: No VTE Mechan Device Prophylaxis: SCD's
[2020-08-22 19:40] LABS: Bedside Glucose 120 mg/dL (70-110)
[2020-08-22 20:10] LABS: Absolute Lymphocyte Count 0.38 X10^3/uL (0.83-4.51); Absolute Neutrophil Count 11.8 X10^3/uL (2.0-7.7); Basophil# 0.02 X10^3/uL; Basophil% 0.1 % (0-1); Eosinophil# 0.23 X10^3/uL; Eosinophils% 1.6 % (0-5); Hematocrit 33.3 % (40-54); Hemoglobin 11.2 g/dL (13.0-16.5); Lymphocyte # 0.38 X10^3/ul (4.0); Lymphocyte % 2.7 % (19-41); Mean Corp Hgb Conc 33.6 g/dL (32-36); Mean Corpuscular Hgb 31.4 pg (27.0-32.0); Mean Corpuscular Volume 93.3 fL (80-94); Monocyte# 1.74 X10^3/uL; Monocyte% 12.1 % (0-10); NRBC Flagged by Analyzer 0 % (0-5); Neutrophil # 11.83 X10^3/uL (2.7-7.7); Neutrophil % 82.6 % (47-70); POSITIVE DIFFERENTIAL YES; Platelet Count 389 K/mm3 (150-450); RBC Distribution Width CV 12.5 % (11.6-14.6); RBC Distribution Width SD 43.2 fl (35.1-43.9); Red Blood Count 3.57 M/mm3 (4.6-6.2); White Blood Count 14.3 K/mm3 (4.4-11.0)
[2020-08-22 20:18] LABS: Differential Indicated SCAN CRITERIA MET
[2020-08-22 20:20] LABS: Anion Gap 5 (5-15); BUN 11 mg/dL (7-18); BUN/Creat Ratio 11.1 RATIO (10-20); Calcium,Total 8.6 mg/dL (8.5-10.1); Chloride 106 mmol/L (98-107); Creatinine, Serum 0.99 mg/dL (0.70-1.30); EST Glomerular Filtration Rate 82 mL/min (>60); Est Glom Filt Rate - Afr Amer 100 mL/min (>60); Estimated Creatinine Clearance 74.29 ml/min; Glucose 140 mg/dL (74-106); Potassium 4.1 mmol/L (3.5-5.1); Sodium Level 138 mmol/L (136-145)
[2020-08-22] MEDS: Lactated Ringers 1,000 ML 75 ML IV (20:46)
[2020-08-22 20:51] LABS: Differential Comment SCANNED
[2020-08-22] MEDS: Ketorolac 15 MG/ML Vial IV (21:39)
[2020-08-22] MEDS: Tamsulosin HCl 0.4 MG Capsule PO (21:48)
[2020-08-22] MEDS: Atorvastatin Calcium 20 MG Tablet PO (21:49)
[2020-08-22 23:46] LABS: Bedside Glucose 139 mg/dL (70-110)
[2020-08-23 00:47] VITALS: BP 123/84; PULSE 80; RESP 18; TEMP 36.7; O2SAT 95
[2020-08-23] MEDS: Acetaminophen 325 MG Tablet 650 MG PO (00:59)
[2020-08-23] MEDS: 0.9% Saline Lock 10 ML Syringe IV ×4 (01:02→15:29)
[2020-08-23 02:31] VITALS: BP 125/81; PULSE 72; RESP 16; TEMP 36.9; O2SAT 97
[2020-08-23] MEDS: oxyCODONE 5 MG Tablet PO ×3 (05:55→23:04)
[2020-08-23 06:35] LABS: Bedside Glucose 122 mg/dL (70-110)
[2020-08-23] MEDS: Morphine 2 MG/ML Syringe IV ×3 (06:55→23:04)
--- NOTE | 2020-08-23 07:37 | PCM.PN.BLA ---
Progress Note 59-year-old male with a history of diabetes controlled with oral medication history of prostate cancer underwent radiation therapy recently. Who is developed pain in the left testicle. Saw him last week and he had epididymal orchitis but no abscess, on follow-up this week he had developed an abscess so the last night it was admitted to the hospital taken the surgery and performed an incision and drainage of a scrotal abscess. Postoperative day #1 the Kerlix dressing was removed he has a fairly wide open scrotal incision on the left hemiscrotum. The wound edges are clean there is no more purulent material performed a wet-to-dry dressing today. On exam the patient is alert oriented x3 nontoxic comfortable. He was premedicated for the dressing change minimal pain with the dressing change. Penis is normal no Thornton catheter in the scrotum has a filleted open left hemiscrotum about 6 to 7 cm in size. Assessment and plan this is a 59-year-old male With a large left scrotal abscess status post incision and drainage. Continue with broad-spectrum antibiotics cultures from the operating room are pending. SCDs and Lovenox for DVT prophylaxis. We will continue with pain medicine as needed. Anticipate discharge in 2 or 3 days once cultures are back and wound starts healing. We will make a consult to wound care nurse and to the wound care center for further care.
[2020-08-23] MEDS: BENZOCAINE/MENTHOL 1 LOZENGE MUCOUS MEM ×2 (07:43→23:27)
[2020-08-23] MEDS: metFORMIN HCl 500 MG Tablet PO ×2 (07:50→16:36)
[2020-08-23] MEDS: Tamsulosin HCl 0.4 MG Capsule PO ×2 (07:50→16:36)
[2020-08-23 07:51] VITALS: BP 124/76; PULSE 78; RESP 16; TEMP 36.8; O2SAT 98
[2020-08-23] MEDS: diazePAM 2 MG Tablet 4 MG PO ×2 (09:53→16:36)
[2020-08-23] MEDS: Ceftriaxone 1 GM/50 ML BAG IV ×2 (09:53→22:13)
[2020-08-23] MEDS: HYDROcodone Bitartrate/Apap 5/325 Tablet PO (09:53)
[2020-08-23] MEDS: hydroCHLOROthiazide 25 MG Tablet PO (09:54)
[2020-08-23] MEDS: amLODIPine 10 MG Tablet PO (09:54)
[2020-08-23] MEDS: Docusate Sodium 100 MG Capsule PO ×2 (10:00→22:13)
[2020-08-23] MEDS: Enoxaparin 40 MG/0.4 ML Syringe SC (10:01)
[2020-08-23 12:01] LABS: Bedside Glucose 112 mg/dL (70-110)
[2020-08-23] MEDS: Lactated Ringers 1,000 ML 75 ML IV (12:16)
[2020-08-23 12:39] LABS: Pathologist Review Reviewed
[2020-08-23 15:53] VITALS: BP 130/72; PULSE 73; RESP 16; TEMP 37.1; O2SAT 98
[2020-08-23 17:06] LABS: Bedside Glucose 97 mg/dL (70-110)
[2020-08-23 20:30] VITALS: BP 120/82; PULSE 77; RESP 16; TEMP 36.6; O2SAT 98
[2020-08-23] MEDS: Atorvastatin Calcium 20 MG Tablet PO (22:13)
[2020-08-23 23:15] LABS: Bedside Glucose 136 mg/dL (70-110)
[2020-08-24 00:22] VITALS: BP 132/86; PULSE 85; RESP 16; TEMP 37.2; O2SAT 94
[2020-08-24] MEDS: Lactated Ringers 1,000 ML 75 ML IV ×2 (02:26→15:09)
[2020-08-24 05:06] LABS: Absolute Lymphocyte Count 0.35 X10^3/uL (0.83-4.51); Absolute Neutrophil Count 5.5 X10^3/uL (2.0-7.7); Basophil# 0.01 X10^3/uL; Basophil% 0.1 % (0-1); Eosinophil# 0.28 X10^3/uL; Eosinophils% 3.8 % (0-5); Hematocrit 33.5 % (40-54); Hemoglobin 11.1 g/dL (13.0-16.5); Lymphocyte # 0.35 X10^3/ul (4.0); Lymphocyte % 4.8 % (19-41); Mean Corp Hgb Conc 33.1 g/dL (32-36); Mean Corpuscular Hgb 30.4 pg (27.0-32.0); Mean Corpuscular Volume 91.8 fL (80-94); Mean Platelet Vol. 8.6 fl (6.2-12.0); Monocyte# 1.03 X10^3/uL; Monocyte% 14.1 % (0-10); NRBC Flagged by Analyzer 0 % (0-5); Neutrophil # 5.54 X10^3/uL (2.7-7.7); Neutrophil % 75.6 % (47-70); POSITIVE DIFFERENTIAL YES; Platelet Count 383 K/mm3 (150-450); RBC Distribution Width CV 12.3 % (11.6-14.6); RBC Distribution Width SD 41.4 fl (35.1-43.9); Red Blood Count 3.65 M/mm3 (4.6-6.2); White Blood Count 7.3 K/mm3 (4.4-11.0)
[2020-08-24 05:07] LABS: Differential Indicated SCAN CRITERIA MET
[2020-08-24 05:23] LABS: Anion Gap 5 (5-15); BUN 9 mg/dL (7-18); BUN/Creat Ratio 8.4 RATIO (10-20); Calcium,Total 8.9 mg/dL (8.5-10.1); Chloride 98 mmol/L (98-107); Creatinine, Serum 1.07 mg/dL (0.70-1.30); EST Glomerular Filtration Rate 76 mL/min (>60); Est Glom Filt Rate - Afr Amer 91 mL/min (>60); Estimated Creatinine Clearance 68.74 ml/min; Glucose 130 mg/dL (74-106); Potassium 3.7 mmol/L (3.5-5.1); Sodium Level 135 mmol/L (136-145)
[2020-08-24 06:14] VITALS: BP 125/77; PULSE 76; RESP 18; TEMP 36.6; O2SAT 98
[2020-08-24 09:01] VITALS: BP 140/89; PULSE 77; RESP 15; TEMP 36.8; O2SAT 97
[2020-08-24] MEDS: Tamsulosin HCl 0.4 MG Capsule PO ×2 (09:19→16:35)
[2020-08-24] MEDS: amLODIPine 10 MG Tablet PO (09:19)
[2020-08-24] MEDS: metFORMIN HCl 500 MG Tablet PO ×2 (09:19→16:34)
[2020-08-24] MEDS: hydroCHLOROthiazide 25 MG Tablet PO (09:20)
[2020-08-24] MEDS: Enoxaparin 40 MG/0.4 ML Syringe SC (09:20)
[2020-08-24] MEDS: Docusate Sodium 100 MG Capsule PO ×2 (09:20→22:29)
[2020-08-24] MEDS: Ceftriaxone 1 GM/50 ML BAG IV ×2 (09:22→22:29)
[2020-08-24] MEDS: oxyCODONE 5 MG Tablet PO ×2 (10:12→17:48)
[2020-08-24] MEDS: Morphine 2 MG/ML Syringe IV ×2 (10:12→17:49)
[2020-08-24 11:51] LABS: Bedside Glucose 179 mg/dL (70-110)
--- NOTE | 2020-08-24 13:08 | CHAPLAIN ---
Type of Pastoral Visit _x__ Initial Visit ___ Follow-up Visit ___ On-call Visit ___ General Patient Visit ___ Spiritual Assessment ___ Family Conference ___ Bereavement ___ Rapid Response ___ Code Blue ___ Other (describe below) Pastoral Care Referral From _x__ Patient ___ Family ___ Nurse ___ Physician ___ Licensed Tax Consultant ___ Restaurant Mgr ___ Other (describe below) Sacrament/Intervention _x__ Active listening ___ Anointing ___ Restoration ___ Bereavement ___ Communion _x__ Cortney exploration ___ _x__ Life review _x__ Prayer ___ Reconciliation ___ Sacrament of Sick _x__ Supportive presence ___ Wedding ___ Other (describe below) Pastoral Comments patient and spouse have large family that all lives in [place]; pt glad to be relocated; pt goal is to be healed and back on his feet as soon as possible; pt requests prayer and has Denominational cortney tradition
--- NOTE | 2020-08-24 14:44 | PCM.PROGNOTE ---
Patient Problems: Active and Suspected Problems (Last Reviewed 08/22/20 @ 18:[address] Ramón Stevens MD) Scrotal abscess (Acute) Subjective: 59-year-old male status post incision and drainage of scrotal abscess, wound cultures are still pending but have multiple colonies growing we will see what grows out and tailor antibiotics according to results of the wound culture. His white blood count is normalizing. No more fevers. He is tolerating wet-to-dry dressings by the nursing staff. - Physical Exam Vitals/I&O's: Vital Signs Temp Pulse Resp BP Pulse Ox 98.3 F 77 15 140/89 H 97 08/24/20 09:01 08/24/20 09:01 08/24/20 09:01 08/24/20 09:01 08/24/20 09:01 Oxygen Flow Rate (L/min) 2 Oxygen Delivery Method Room Air Weight: 82.8 kg Body Mass Index (BMI) 29.3 Intake and Output for Last 24 Hours 08/22/20 08/23/20 08/24/20 23:59 23:59 23:59 Intake Total 267.5 / 767.5 3630.0 / 3630.0 1550 / 1550 Output Total 2840 / 2840 1200 / 1200 Balance 267.5 / 567.5 790.0 / 790.0 350 / 350 General: Alert, Oriented x3, Cooperative HEENT: Atraumatic, PERRLA, EOMI, Normocephalic Neck: Supple, No JVD, Negative Carotid Bruits Lungs: Clear to auscultation, Normal air movement Cardiovascular: Regular rate, No murmurs Abdomen: Bowel Sounds Present, Soft, Non Tender Extremities: No edema, Capillary Refill Less than 3 Seconds Skin: No rashes, No breakdown Musculoskeletal: No Tenderness to Palpation of Joints or Extremities Neurological: Cranial nerves II-XII grossly intact Psych/Mental Status: Normal Affect, Appropriate Microbiology Past 72 Hours 08/23/20 Unknown Scrotal Abcess Gram Stain - Final 08/23/20 Unknown Scrotal Abcess Wound Culture - Preliminary No growth-Final to follow 08/22/20 17:30 Mucosa - Nose SARS-CoV-2 Antigen (Rapid) - Final Laboratory Results 08/23/20 16:40: POC Glucose 97 08/23/20 23:07: POC Glucose 136 H 08/24/20 04:50: WBC 7.3, RBC 3.65 L, Hgb 11.1 L, Hct 33.5 L, MCV 91.8, MCH 30.4, MCHC 33.1, RDW Std Deviation 41.4, RDW Coeff of Jonathan 12.3, Plt Count 383, MPV 8.6, Immature Gran % (Auto) 1.600 H, Neut % (Auto) 75.6 H, Lymph % (Auto) 4.8 L, Zavala % (Auto) 14.1 H, Eos % (Auto) 3.8, Baso % (Auto) 0.1, Absolute Neuts (auto) 5.5, Absolute Lymphs (auto) 0.35 L, Nucleated RBC % 0 08/24/20 04:50: Sodium 135 L, Potassium 3.7, Chloride 98, Carbon Dioxide 32.0, Anion Gap 5, BUN 9, Creatinine 1.07, Estim Creat Clear Calc 68.74, Est GFR (MDRD) Af Amer 91, Est GFR (MDRD) Non-Af 76, BUN/Creatinine Ratio 8.4 L, Glucose 130 H, Calcium 8.9 08/24/20 11:39: POC Glucose 179 H Current Medications Acetaminophen (Acetaminophen 325 Mg Tablet) 650 mg PO Q4H PRN PRN PRN Reason: Pain Score 1-4 Last Admin: 08/23/20 00:59 Dose: 650 mg Documented by: Hydrocodone Bitart/Acetaminophen (Hydrocodone Bitartrate/Apap 5/325 Tablet) 1 - 2 tablet PO Q6H PRN PRN PRN Reason: Pain Score 1-4 Last Admin: 08/23/20 09:53 Dose: 2 tablet Documented by: Amlodipine Besylate (Amlodipine 10 Mg Tablet) 10 mg PO DAILY [facility] Last Admin: 08/24/20 09:19 Dose: 10 mg Documented by: Atorvastatin Calcium (Atorvastatin Calcium 20 Mg Tablet) 20 mg PO QHS [facility] Last Admin: 08/23/20 22:13 Dose: 20 mg Documented by: Dextrose (Dextrose 50%-Water 25 Gm/50 Ml Disp.Syrin) 0 gm IV X1 PRN; Protocol PRN Reason: Hypoglycemia Diazepam (Diazepam 2 Mg Tablet) 4 mg PO TID PRN PRN PRN Reason: ANXIETY Last Admin: 08/23/20 16:36 Dose: 4 mg Documented by: Docusate Sodium (Docusate Sodium 100 Mg Capsule) 100 mg PO BID [facility] Last Admin: 08/24/20 09:20 Dose: 100 mg Documented by: Enoxaparin Sodium (Enoxaparin 40 Mg/0.4 Ml Syringe) 40 mg SC DAILY [facility] Last Admin: 08/24/20 09:20 Dose: 40 mg Documented by: Glucagon (Glucagon 1 Mg/Ml Syringe) 1 mg IM .X1 PRN PRN Reason: Hypoglycemia Hydrochlorothiazide (Hydrochlorothiazide 25 Mg Tablet) 25 mg PO DAILY [facility] Last Admin: 08/24/20 09:20 Dose: 25 mg Documented by: Ceftriaxone Sodium (Rocephin) 1 gm in 50 mls @ 100 mls/hr IV Q12 [facility] Last Infusion: 08/24/20 09:52 Dose: Infused Documented by: Sodium Chloride () 250 mls @ 15 mls/hr IV .[id number] PRN PRN Reason: Saline Flush Sodium Chloride () 250 mls @ 15 mls/hr IV .[id number] PRN PRN Reason: Additional IVPB Infusion Lactated Ringer's () 1,000 mls @ 75 mls/hr IV .[id number] [facility] Last Admin: 08/24/20 02:26 Dose: 75 mls/hr Documented by: Metformin HCl ([facility] Hcl 500 Mg Tablet) [facility] Last Admin: 08/24/20 09:19 Dose: 500 mg Documented by: Metoclopramide HCl (Metoclopramide 10 Mg/2 Ml Vial) 10 mg IV X1 PRN PRN Reason: NAUSEA/VOMITING Morphine Sulfate (Morphine 2 Mg/Ml Syringe) 2 mg IV Q2H PRN PRN PRN Reason: Pain Score 1-10 Last Admin: 08/24/20 10:12 Dose: 2 mg Documented by: Ondansetron HCl (Ondansetron 4 Mg/2 Ml Vial) 4 mg IV Q6H PRN PRN PRN Reason: NAUSEA/VOMITING Oxycodone HCl (Oxycodone 5 Mg Tablet) 5 - 10 mg PO Q6H PRN PRN PRN Reason: Pain Score 4-10 Last Admin: 08/24/20 10:12 Dose: 10 mg Documented by: Sodium Chloride (0.9% Saline Lock 10 Ml Syringe) 10 - 40 ml IV UD PRN PRN Reason: SALINE FLUSH Last Admin: 08/23/20 15:29 Dose: 10 ml Documented by: Tamsulosin HCl (Tamsulosin Hcl 0.4 Mg Capsule) 0.4 mg PO BID@0830,1730 AN Last Admin: 08/24/20 09:19 Dose: 0.4 mg Documented by: Throat Lozenges (Benzocaine/Menthol 1 Lozenge) 1 lozenge MUCOUS MEM Q2H PRN PRN PRN Reason: SORE THROAT Last Admin: 08/23/20 23:27 Dose: 1 lozenge Documented by: Medical Necessity - Tobacco Use Smoking Status: Never smoker Assessment/Plan All Active Problems (Last Reviewed 08/22/20 @ 18:[address] Ramón Stevens MD) Scrotal abscess (Acute) 59-year-old male status post incision and drainage of large purulent scrotal abscess continue with wet-to-dry dressings 3 times a day continue with IV antibiotics await results of wound cultures. Once wound cultures are finalized then we can send him home with appropriate antibiotics and appropriate follow-up with wound care center.
[2020-08-24 15:15] VITALS: BP 124/84; PULSE 80; RESP 18; TEMP 36.7; O2SAT 97
[2020-08-24 16:41] LABS: Bedside Glucose 120 mg/dL (70-110)
[2020-08-24] MEDS: Ondansetron 4 MG/2 ML Vial IV (18:52)
[2020-08-24] MEDS: Atorvastatin Calcium 20 MG Tablet PO (22:29)
[2020-08-24 23:42] VITALS: BP 110/69; PULSE 84; RESP 16; TEMP 36.8; O2SAT 94
[2020-08-25 00:01] LABS: Bedside Glucose 150 mg/dL (70-110)
[2020-08-25 00:35] LABS: Bedside Glucose 123 mg/dL (70-110)
[2020-08-25] MEDS: Lactated Ringers 1,000 ML 75 ML IV ×2 (03:54→17:35)
[2020-08-25 03:58] VITALS: BP 110/73; PULSE 73; RESP 16; TEMP 36.6; O2SAT 94
[2020-08-25] MEDS: oxyCODONE 5 MG Tablet PO ×2 (04:20→13:57)
[2020-08-25 05:45] VITALS: PULSE 82; O2SAT 95
[2020-08-25] MEDS: Morphine 2 MG/ML Syringe IV ×2 (05:52→14:47)
[2020-08-25] MEDS: 0.9% Saline Lock 10 ML Syringe IV ×3 (05:53→17:40)
[2020-08-25 07:11] LABS: Bedside Glucose 131 mg/dL (70-110)
--- NOTE | 2020-08-25 07:25 | PCM.PN.BLA ---
Progress Note Status post incision and drainage of scrotal abscess, he had rosa purulent pus come out of the scrotum. Cultures were done and no growth on cultures somewhat surprising but anaerobic cultures are still pending. His white count has normalized. No more fevers. Wet-to-dry dressings are going well and he is tolerating better the dressing changes. He thinks his could do the dressing changes at home. On examination he is alert orient x3 no acute distress abdomen soft and benign penis is normal testicles the left hemiscrotum is filleted open and wet-to-dry dressings are in place but is nice and clean. Infection plan most likely discharge home tomorrow and he can do wet-to-dry dressings will send him home with antibiotics. STROKE Vital Signs/Narrative: Vital Signs Temp Pulse Resp BP Pulse Ox 08/25/20 05:45 82 95 08/25/20 03:58 98 F 73 16 110/73 94
[2020-08-25 10:00] VITALS: BP 119/71; PULSE 70; RESP 18; TEMP 36.7; O2SAT 96
[2020-08-25] MEDS: Ceftriaxone 1 GM/50 ML BAG IV ×2 (10:04→22:24)
[2020-08-25] MEDS: Docusate Sodium 100 MG Capsule PO ×2 (10:05→22:23)
[2020-08-25] MEDS: metFORMIN HCl 500 MG Tablet PO ×2 (10:05→17:40)
[2020-08-25] MEDS: Tamsulosin HCl 0.4 MG Capsule PO ×2 (10:05→17:40)
[2020-08-25] MEDS: Enoxaparin 40 MG/0.4 ML Syringe SC (10:05)
[2020-08-25] MEDS: amLODIPine 10 MG Tablet PO (10:05)
[2020-08-25] MEDS: hydroCHLOROthiazide 25 MG Tablet PO (10:05)
--- NOTE | 2020-08-25 10:15 | CASEMGMT ---
RN NIA Face to Face with patient for initial transition planning/care coordination assessment. RN CM introduced self and role at [facility]. Patient lying in bed, alert and oriented. Patient willing to participate in assessment and is able to answer all questions appropriately. Care providers, pharmacy, and demographics verified. Patient wishes to discharge home, denies need for home health at this time. Patient states he has no further needs or concerns at this time. CM to follow for discharge planning needs that may arise. PCP: Baljeet Specialists: Rodney urologist Preferred Pharmacy: [facility] [place] Insurance: [facility] Prescription Benefit: yes Living Will/HPOA: none LNOK: Living Arrangements: Patient lives with in a house, patient states he is independent at home. 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 Marcy FAROOQ, RN, CM
[2020-08-25] MEDS: HYDROcodone Bitartrate/Apap 5/325 Tablet PO (10:19)
[2020-08-25 12:15] LABS: Bedside Glucose 236 mg/dL (70-110)
[2020-08-25 16:06] VITALS: BP 112/76; PULSE 79; RESP 16; TEMP 36.8; O2SAT 96
[2020-08-25 16:50] LABS: Bedside Glucose 118 mg/dL (70-110)
[2020-08-25] MEDS: Ondansetron 4 MG/2 ML Vial IV (17:39)
[2020-08-25 22:00] VITALS: BP 111/72; PULSE 77; RESP 16; TEMP 36.6; O2SAT 96
[2020-08-25] MEDS: Atorvastatin Calcium 20 MG Tablet PO (22:24)
[2020-08-25 22:31] LABS: Bedside Glucose 134 mg/dL (70-110)
[2020-08-26] MEDS: oxyCODONE 5 MG Tablet PO (02:56)
[2020-08-26] MEDS: Morphine 2 MG/ML Syringe IV (03:40)
[2020-08-26 04:00] VITALS: BP 118/78; PULSE 75; RESP 16; TEMP 36.8; O2SAT 100
[2020-08-26] MEDS: Lactated Ringers 1,000 ML 75 ML IV (05:06)
[2020-08-26 07:00] LABS: Bedside Glucose 102 mg/dL (70-110)
[2020-08-26] MEDS: hydroCHLOROthiazide 25 MG Tablet PO (07:54)
[2020-08-26] MEDS: Docusate Sodium 100 MG Capsule PO (07:54)
[2020-08-26] MEDS: Tamsulosin HCl 0.4 MG Capsule PO (07:54)
[2020-08-26] MEDS: metFORMIN HCl 500 MG Tablet PO (07:54)
[2020-08-26] MEDS: amLODIPine 10 MG Tablet PO (07:54)
[2020-08-26] MEDS: Enoxaparin 40 MG/0.4 ML Syringe SC (07:54)
--- NOTE | 2020-08-26 07:55 | PCM.PN.BLA ---
Progress Note Status post incision and drainage of scrotal abscess patient is doing well tolerating dressing changes he will go home with dressing changes wet-to-dry dressing changes with Nu Gauze follow-up in the office in 1 week. STROKE Vital Signs/Narrative: Vital Signs Temp Pulse Resp BP Pulse Ox 08/26/20 04:00 98.3 F 75 16 118/78 100
--- NOTE | 2020-08-26 07:58 | DCINST_ITS ---
Discharge Diet: Light diet - advance as tolerated Discharge Activity: May Not Drive, May not drive while taking narcotic pain medications., May Shower Return to work on:: 09/16/20 Additional Dressing/Incision Instructions:: Wet to dry dressing with nugauze twice per day. and dressing, scrotal support Allergies/Adverse Reactions: Allergies No Known Allergies Allergy (Verified 07/27/20 15:27) Medications to take at Discharge Atorvastatin Calcium [Lipitor] 20 mg PO QHS 04/28/20 Hydrochlorothiazide [Hctz] 25 mg PO DAILY 04/28/20 Metformin HCl [Glucophage] 500 mg PO BID 04/28/20 Amlodipine Besylate 10 mg PO DAILY 05/25/20 Tamsulosin HCl [Flomax] 0.4 mg PO BID #60 cap 07/30/20 Ciprofloxacin HCl 500 mg PO BID 08/22/20 Naproxen 500 mg PO BID 08/22/20 Ciprofloxacin [Cipro] 500 mg PO BID #14 tab 08/26/20 Docusate Sodium [Colace] 100 mg PO BID #20 cap 08/26/20 Hydrocodone Bitart/Apap 5-325 [[place] 5MG-325MG] 1 tab PO Q4H PRN PRN 7 Days #14 tab 08/26/20 The following prescriptions were given: Ciprofloxacin [Cipro] 500 mg PO BID #14 tab Prescription Printed Docusate Sodium [Colace] 100 mg PO BID #20 cap Prescription Printed Hydrocodone Bitart/Apap 5-325 [[place] 5MG-325MG] 1 tab PO Q4H PRN PRN 7 Days #14 tab PRN Reason: Pain Prescription Printed Primary Care Physician: Brady Delong DO [Primary Care Provider] - Test Results: Test results from this visit will be discussed in further detail at your follow- up appointment, if applicable. Please Follow Up With: Ramón Stevens MD When: please call to make an appointment.
--- NOTE | 2020-08-26 07:59 | DS.PCM_ITS ---
Discharge Date and Diagnosis - Problem List Patient Problems: Active and Suspected Problems (Last Reviewed 08/22/20 @ 18:[address] Ramón Stevens MD) Scrotal abscess (Acute) Date of Admission: 08/22/20 Date of Discharge: 08/26/20 - Primary Discharge Diagnosis Acute Problems: Active Problems (Last Reviewed 08/22/20 @ 18:[address] 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 He was kept in the hospital for wet-to-dry dressings until tolerable. Cultures are final still pending but initial cultures were negative. He will go home on antibiotics pain medicine and stool softeners and his family members will do the dressing changes at home. Patient Problems: Active and Suspected Problems (Last Reviewed 08/22/20 @ 18:[address] Ramón Stevens MD) Scrotal abscess (Acute) - Physical Exam Vitals/I&O's: Vital Signs Temp Pulse Resp BP Pulse Ox 98.3 F 75 16 118/78 100 08/26/20 04:00 08/26/20 04:00 08/26/20 04:00 08/26/20 04:00 08/26/20 04:00 Oxygen Flow Rate (L/min) 2 Oxygen Delivery Method Room Air Weight: 82.8 kg Body Mass Index (BMI) 29.3 Intake and Output for Last 24 Hours 08/24/20 08/25/20 08/26/20 23:59 23:59 23:59 Intake Total 3924.00 / 3924.00 2310 / 2610 1363.75 / 1363.75 Output Total 3050 / 3050 1800 / 2075 525 / 525 Balance 874.00 / 874.00 510 / 535 838.75 / 838.75 General: Alert, Oriented x3, Cooperative HEENT: Atraumatic, PERRLA, EOMI, Normocephalic Neck: Supple, No JVD, Negative Carotid Bruits Lungs: Clear to auscultation, Normal air movement Cardiovascular: Regular rate, No murmurs Abdomen: Bowel Sounds Present, Soft, Non Tender Extremities: No edema, Capillary Refill Less than 3 Seconds Skin: No rashes, No breakdown Musculoskeletal: No Tenderness to Palpation of Joints or Extremities Neurological: Cranial nerves II-XII grossly intact Psych/Mental Status: Normal Affect, Appropriate Microbiology Past 72 Hours 08/23/20 Unknown Scrotal Abcess Gram Stain - Final 08/23/20 Unknown Scrotal Abcess Wound Culture - Final No growth aerobically. 08/23/20 Unknown Scrotal Abcess Anaerobic Culture - Preliminary Checking for anaerobes, further studies to follow. Laboratory Results 08/25/20 11:41: POC Glucose 236 H 08/25/20 16:31: POC Glucose 118 H 08/25/20 22:26: POC Glucose 134 H 08/26/20 06:57: POC Glucose 102 Current Medications Acetaminophen (Acetaminophen 325 Mg Tablet) 650 mg PO Q4H PRN PRN PRN Reason: Pain Score 1-4 Last Admin: 08/23/20 00:59 Dose: 650 mg Documented by: Hydrocodone Bitart/Acetaminophen (Hydrocodone Bitartrate/Apap 5/325 Tablet) 1 - 2 tablet PO Q6H PRN PRN PRN Reason: Pain Score 1-4 Last Admin: 08/25/20 10:19 Dose: 2 tablet Documented by: Amlodipine Besylate (Amlodipine 10 Mg Tablet) 10 mg PO DAILY [facility] Last Admin: 08/26/20 07:54 Dose: 10 mg Documented by: Atorvastatin Calcium (Atorvastatin Calcium 20 Mg Tablet) 20 mg PO QHS [facility] Last Admin: 08/25/20 22:24 Dose: 20 mg Documented by: Dextrose (Dextrose 50%-Water 25 Gm/50 Ml Disp.Syrin) 0 gm IV X1 PRN; Protocol PRN Reason: Hypoglycemia Diazepam (Diazepam 2 Mg Tablet) 4 mg PO TID PRN PRN PRN Reason: ANXIETY Last Admin: 08/23/20 16:36 Dose: 4 mg Documented by: Docusate Sodium (Docusate Sodium 100 Mg Capsule) 100 mg PO BID [facility] Last Admin: 08/26/20 07:54 Dose: 100 mg Documented by: Enoxaparin Sodium (Enoxaparin 40 Mg/0.4 Ml Syringe) 40 mg SC DAILY [facility] Last Admin: 08/26/20 07:54 Dose: 40 mg Documented by: Glucagon (Glucagon 1 Mg/Ml Syringe) 1 mg IM .X1 PRN PRN Reason: Hypoglycemia Hydrochlorothiazide (Hydrochlorothiazide 25 Mg Tablet) 25 mg PO DAILY [facility] Last Admin: 08/26/20 07:54 Dose: 25 mg Documented by: Ceftriaxone Sodium (Rocephin) 1 gm in 50 mls @ 100 mls/hr IV Q12 [facility] Last Infusion: 08/25/20 23:00 Dose: Infused Documented by: Sodium Chloride () 250 mls @ 15 mls/hr IV .[id number] PRN PRN Reason: Saline Flush Last Infusion: 08/24/20 23:45 Dose: 0 mls/hr Documented by: Sodium Chloride () 250 mls @ 15 mls/hr IV .[id number] PRN PRN Reason: Additional IVPB Infusion Lactated Ringer's () 1,000 mls @ 75 mls/hr IV .[id number] [facility] Last Admin: 08/26/20 05:06 Dose: 75 mls/hr Documented by: Metformin HCl (Metformin Hcl 500 Mg Tablet) 500 mg PO BIDCM [facility] Last Admin: 08/26/20 07:54 Dose: 500 mg Documented by: Metoclopramide HCl (Metoclopramide 10 Mg/2 Ml Vial) 10 mg IV X1 PRN PRN Reason: NAUSEA/VOMITING Morphine Sulfate (Morphine 2 Mg/Ml Syringe) 2 mg IV Q2H PRN PRN PRN Reason: Pain Score 1-10 Last Admin: 08/26/20 03:40 Dose: 2 mg Documented by: Ondansetron HCl (Ondansetron 4 Mg/2 Ml Vial) 4 mg IV Q6H PRN PRN PRN Reason: NAUSEA/VOMITING Last Admin: 08/25/20 17:39 Dose: 4 mg Documented by: Oxycodone HCl (Oxycodone 5 Mg Tablet) 5 - 10 mg PO Q6H PRN PRN PRN Reason: Pain Score 4-10 Last Admin: 08/26/20 02:56 Dose: 10 mg Documented by: Sodium Chloride (0.9% Saline Lock 10 Ml Syringe) 10 - 40 ml IV UD PRN PRN Reason: SALINE FLUSH Last Admin: 08/25/20 17:40 Dose: 10 ml Documented by: Tamsulosin HCl (Tamsulosin Hcl 0.4 Mg Capsule) 0.4 mg PO BID@0830,1730 AN Last Admin: 08/26/20 07:54 Dose: 0.4 mg Documented by: Throat Lozenges (Benzocaine/Menthol 1 Lozenge) 1 lozenge MUCOUS MEM Q2H PRN PRN PRN Reason: SORE THROAT Last Admin: 08/23/20 23:27 Dose: 1 lozenge Documented by: Discharge Diet: Light diet - advance as tolerated Discharge Activity: May Not Drive, May not drive while taking narcotic pain medications., May Shower Return to work on:: 09/16/20 Additional Dressing/Incision Instructions:: Wet to dry dressing with nugauze twice per day. and dressing, scrotal support Home Medications: Medications to take at Discharge Atorvastatin Calcium [Lipitor] 20 mg PO QHS 04/28/20 Hydrochlorothiazide [Hctz] 25 mg PO DAILY 04/28/20 Metformin HCl [Glucophage] 500 mg PO BID 04/28/20 Amlodipine Besylate 10 mg PO DAILY 05/25/20 Tamsulosin HCl [Flomax] 0.4 mg PO BID #60 cap 07/30/20 Ciprofloxacin HCl 500 mg PO BID 08/22/20 Naproxen 500 mg PO BID 08/22/20 Ciprofloxacin [Cipro] 500 mg PO BID #14 tab 08/26/20 Docusate Sodium [Colace] 100 mg PO BID #20 cap 08/26/20 Hydrocodone Bitart/Apap 5-325 [[place] 5MG-325MG] 1 tab PO Q4H PRN PRN 7 Days #14 tab 08/26/20 Following Prescriptions Were Given to Patient: Ciprofloxacin [Cipro] 500 mg PO BID #14 tab Prescription Printed Docusate Sodium [Colace] 100 mg PO BID #20 cap Prescription Printed Hydrocodone Bitart/Apap 5-325 [[place] 5MG-325MG] 1 tab PO Q4H PRN PRN 7 Days #14 tab PRN Reason: Pain Prescription Printed Primary Care Physician: Brady Delong DO [Primary Care Provider] - Please Follow Up With: Ramón Stevens MD When: please call to make an appointment. Medical Necessity - Tobacco Use Smoking Status: Never smoker Meaningful Use Info Meaningful Use Diagnoses (Choose all that apply): None applicable
[2020-08-26] MEDS: Ceftriaxone 1 GM/50 ML BAG IV (09:57)
[2020-08-26 10:00] VITALS: BP 116/74; PULSE 80; RESP 16; TEMP 36.7; O2SAT 97
--- NOTE | 2020-08-26 10:00 | CASEMGMT ---
LOUIS KRAMER updated that patient will need FWW at discharge. LOUIS KRAMER received script for FWW. RN NIA in to discuss DME with patient. Patient was provided a list of DME providers consistent with the patient?s preferred geographic region, medical needs, and insurance network. The patient?s preferred provider is [facility]. LOUIS KRAMER sent referral to [employer] and arranged for walker to be delivered prior to discharge. Patient had no further questions or concerns at this time.
--- NOTE | 2020-08-26 10:00 | NURSING ---
Patient has been discharged. Reviewed discharge instructions with him and removed IV. Waiting for walker to be delivered here at the hospital. Patient tried to call several times for a ride no answer at this time.
--- NOTE | 2020-08-26 10:40 | PHA.DC.MC ---
Pharmacy Service has performed discharge medication reconciliation and counseling for this patient. 1. CIPROFLOXACIN 500MG PO BID X 7 DAYS 2. DOCUSATE 100MG PO BID X 10 DAYS 3. NORCO 5/325MG 1T PO Q4H PRN PAIN The patient's discharge medication list was reviewed for discrepancies and discrepancies were resolved. Home Medications Atorvastatin Calcium [Lipitor] 20 mg PO QHS 04/28/20 Hydrochlorothiazide [Hctz] 25 mg PO DAILY 04/28/20 Metformin HCl [Glucophage] 500 mg PO BID 04/28/20 Amlodipine Besylate 10 mg PO DAILY 05/25/20 Tamsulosin HCl [Flomax] 0.4 mg PO BID #60 cap 07/30/20 Naproxen 500 mg PO BID 08/22/20 Ciprofloxacin [Cipro] 500 mg PO BID #14 tab 08/26/20 Docusate Sodium [Colace] 100 mg PO BID #20 cap 08/26/20 Hydrocodone Bitart/Apap 5-325 [[place] 5MG-325MG] 1 tab PO Q4H PRN PRN 7 Days #14 tab 08/26/20 The patient was counseled on the following discharge medications and changes in medications for homegoing were reviewed. The Reason for Use, instructions for use, and potential side effects were reviewed for all new medications. The patient's questions regarding all of their medications were answered. The patient was able to verbally demonstrate an understanding of their discharge medications.
[2020-08-26] MEDS: HYDROcodone Bitartrate/Apap 5/325 Tablet PO (13:04)
[2020-08-26 13:21] VITALS: BP 116/74; PULSE 80; RESP 18; TEMP 36.7; O2SAT 97
== END 2020-08-26 14:27 | disposition home or self-care (01) | DRG 728 ==
PROVIDERS: Anesthesiology; Admitting Provider Urology; PCP Family Medicine; Visit Provider Urology
PROC: 0V95XZZ Drainage of Scrotum, External Approach (ICD-10-PCS; principal; 2020-08-22 18:30)
DX: N49.2 Inflammatory disorders of scrotum (principal); E11.9 Type 2 diabetes mellitus without complications; E78.00 Pure hypercholesterolemia, unspecified; Z85.46 Personal history of malignant neoplasm of prostate; I10 Essential (primary) hypertension; Z79.899 Other long term (current) drug therapy; Z79.84 Long term (current) use of oral hypoglycemic drugs
CPT/HCPCS: 80048; 82962; 83036; 83605; 85025; 87070; 87075; 87077; 87205; 87426; 93005; J7030; J7050; J7120; A4216; J2405

== ENCOUNTER 2020-09-07 13:24 | Emergency (ER) | payer OTHER, SELFPAY ==
[2020-04-28 15:14] VITALS: BMI 30.6
[2020-08-22 18:13] VITALS: BMI 29.3
[2020-09-07 13:25] VITALS: BP 140/90; PULSE 110; RESP 14; TEMP 36.4; O2SAT 97; BMI 28.0
--- NOTE | 2020-09-07 13:42 | CT_ITS ---
STUDY: CT PELVIS WITH CONTRAST REASON FOR EXAM: Male, 59 years old. Left scrotal abscess RADIATION DOSAGE (If Supplied By Facility): CTDIvol = ( 11.53 ) mGy, DLP = ( 409.30 ) mGycm TECHNIQUE: Transaxial imaging of the pelvis was performed without oral contrast. IV 100ML ISOVUE 300 was administered intravenously. Individualized dose optimization techniques were used for this CT. COMPARISON: Comparison is made with prior study 04/08/2020. FINDINGS: Diffuse bladder wall thickening. Prostatic enlargement. Metallic radiation seeds are seen within the prostate. Bilateral scrotal hydroceles. Correlation with ultrasound is recommended. Normal visualized small intestine. There are multiple colonic diverticula of the sigmoid colon consistent with chronic diverticulosis. There is no pelvic fluid. There is no pelvic lymphadenopathy or mass lesion. Normal visualized pelvic arteries. Normal abdominal wall. There are diffuse degenerative changes of the visualized lumbar spine. CT/Pelvis WITH IV Contrast IMPRESSION: Findings in comparison with bilateral hydroceles more prominent on the left side. Correlation with ultrasound is recommended. Diffuse thickening of the bladder wall. Prostatic enlargement with the metallic radiation seeds. Electronically Signed: Chad Godfrey MD at 15:01 EDT , Service support ,
--- NOTE | 2020-09-07 13:44 | ED.DCSUM_ITS ---
- ER Visit Summary Date of Service: 09/07/20 Chief Complaint: Penile discharge History of Present Illness: The patient is a [address] Delong and Dr. Stevens. Patient had a scrotal abscess drained on August 26 and finished Cipro 4 days ago. Reports he has penile discharge that began again 2 days ago. States this is similar to when he had a scrotal abscess. He denies any dysuria or frequency. States that the drainage is yellow. It is not foul-smelling. He denies any possible exposure to STD. On review of system patient complains of chills. He denies any fever, nausea, vomiting, or other constitutional symptoms. Physical Examination: Vitals: Stable. Afebrile. General: Well-nourished and well-developed. Head: Normocephalic atraumatic. Neck: Supple, no lymphadenopathy. No JVD. Nontender. Cardiovascular: Regular rate and rhythm. No murmurs. Respiratory: No respiratory distress. Clear to auscultation bilaterally. Abdominal: Soft, nontender, nondistended, normal bowel sounds. No guarding, rebound, or peritoneal signs. : Normal circumcised male. There is a small amount of discharge on the 2 x 2 that he had over the glans of his penis. There is approximately 4 cm incision over the lateral portion of the left scrotum that appears to be healing well. There is granulation tissue present. There is no drainage from this area. Back: Nontender. Extremities: Nontender, no edema. Skin: Normal color, no rash. Neurologic: Alert and oriented ?3. Cranial nerves II through XII are intact. Normal strength and sensation. Psych: Normal affect. Test Results: CBC shows stable neutrophils 79, lymphocytes of 7. Chem-7 shows a glucose of 120. UA has greater than 100 whites, but no bacteria. Clinical Impression(s) from Imaging Studies Pelvis CT 09/07/20 13:42 IMPRESSION: Findings in comparison with bilateral hydroceles more prominent on the left side. Correlation with ultrasound is recommended. Diffuse thickening of the bladder wall. Prostatic enlargement with the metallic radiation seeds. Electronically Signed: Chad Godfrey MD at 15:01 EDT , Service support , Emergency Department Course and Treatment: I reviewed the patient's prior cultures from his incision and drainage and it showed Bacteroides. He was given a dose of Flagyl IV and doxycycline p.o. He is given morphine for pain. Treatment Plan: Patient was discussed with Dr. Stevens. He will be discharged instructions to follow-up tomorrow for repeat exam. He will be placed on doxycycline and Flagyl at home. Return to the emergency department for any worsening symptoms. Disposition: To home in improved and stable condition. Impression: 1 1. Scrotal abscess. This note was generated with [employer] software. It may contain incorrect words, spelling, and punctuation that were not noted in review of the chart p rior to signing ED Disposition - Plan for ED Patient: Instructions: ED Abscess Antibiotic Treatment Only Prescriptions: Doxycycline 100 mg PO BID #10 capsule Transmission Status: [facility] by [id number] [place] [Flagyl] 500 mg PO Q6H #28 tablet Transmission Status: Received by [id number] Hydrocodone Bitart/Apap 5-325 [[place] 5MG-325MG] 1 tablet PO Q4H PRN PRN 2 Days #10 tab PRN Reason: Pain Transmission Status: Received by [id number] Referrals: Ramón Stevens MD [STAFF PHYSICIAN] - 1 Day for another exam
[2020-09-07] MEDS: 0.9% Normal Saline 1,000 ML 1000 ML IV (14:19)
[2020-09-07 14:24] LABS: Absolute Lymphocyte Count 0.44 X10^3/uL (0.83-4.51); Absolute Neutrophil Count 5.1 X10^3/uL (2.0-7.7); Basophil# 0.02 X10^3/uL; Basophil% 0.3 % (0-1); Eosinophil# 0.13 X10^3/uL; Hematocrit 35.4 % (40-54); Hemoglobin 11.9 g/dL (13.0-16.5); Lymphocyte # 0.44 X10^3/ul (4.0); Lymphocyte % 6.7 % (19-41); Mean Corp Hgb Conc 33.6 g/dL (32-36); Mean Corpuscular Hgb 30.7 pg (27.0-32.0); Mean Corpuscular Volume 91.5 fL (80-94); Monocyte# 0.78 X10^3/uL; NRBC Flagged by Analyzer 0 % (0-5); Neutrophil # 5.12 X10^3/uL (2.7-7.7); Neutrophil % 78.5 % (47-70); POSITIVE DIFFERENTIAL YES; Platelet Count 437 K/mm3 (150-450); RBC Distribution Width CV 13.4 % (11.6-14.6); RBC Distribution Width SD 44.7 fl (35.1-43.9); Red Blood Count 3.87 M/mm3 (4.6-6.2); White Blood Count 6.5 K/mm3 (4.4-11.0)
[2020-09-07 14:26] LABS: Differential Indicated SCAN CRITERIA MET
[2020-09-07 14:37] LABS: Anion Gap 7 (5-15); BUN 11 mg/dL (7-18); BUN/Creat Ratio 10.4 RATIO (10-20); Calcium,Total 9.5 mg/dL (8.5-10.1); Chloride 105 mmol/L (98-107); Creatinine, Serum 1.06 mg/dL (0.70-1.30); EST Glomerular Filtration Rate 76 mL/min (>60); Est Glom Filt Rate - Afr Amer 92 mL/min (>60); Estimated Creatinine Clearance 69.38 ml/min; Glucose 120 mg/dL (74-106); Potassium 3.7 mmol/L (3.5-5.1); Sodium Level 139 mmol/L (136-145)
[2020-09-07] MEDS: Morphine 4 MG/ML Syringe IV (14:59)
[2020-09-07 15:40] LABS: Bacteria 0 SEEN /hpf (None Seen); Red Blood Cells-Urine 0 SEEN /hpf (0-5); Squamous Epithelial Cells - UA 0 SEEN /hpf (0-5)
[2020-09-07 16:04] LABS: Color, Urine Yellow (Yellow); Glucose, Dipstick Normal (Normal); Ketone-Dipstick Negative (Negative); Leukocyte Esterase-Dipstick 500 /ul (Negative); Nitrite-Dipstick Negative (Negative); Occult Blood-Urine 25 /ul (Negative); Protein-Dipstick 30 mg/dl (Negative); Urine Bilirubin Dipstick Negative (Negative); Urine Clarity Sl. Cloudy (Clear); Urine Urobilinogen Normal (Normal); Urine pH 6.5 (5.0 - 8.0)
[2020-09-07 16:12] LABS: Calcium Oxalate Crystals Ur 1+ /hpf (<or=2+); Mucous, Urine 2+ /hpf (<or=2+); White Blood Cells >100 SEEN /hpf (0-5)
[2020-09-07] MEDS: metroNIDAZOLE 500 MG/100 ML BAG 100 MG IV (16:17)
[2020-09-07] MEDS: Doxycycline 100 MG CAPSULE PO (16:24)
[2020-09-07 17:38] VITALS: BP 168/77; PULSE 80; RESP 14; O2SAT 99
[2020-09-07 18:27] LABS: Chlamydia Trachomatis by PCR Negative (Negative); Neisserai gonorrhoeae by PCR Negative (Negative); Probe Check PASS; Sample Adequacy Control PASS; Specimen Processing Control PASS
== END 2020-09-07 17:40 | disposition home or self-care (01) ==
LOC: ED 14:02
PROVIDERS: Emergency Provider Emergency Medicine; PCP Family Medicine
DX: N49.2 Inflammatory disorders of scrotum (principal)
CPT/HCPCS: 72193; 80048; 81001; 85025; 87491; 87591; 96365; 96366; 96375; 99285; J7030; Q9967; A4216

== ENCOUNTER → 2020-09-08 13:09 | Outpatient (CLI) | payer OTHER, SELFPAY ==
[2020-04-28 15:14] VITALS: BMI 30.6
[2020-09-07 13:25] VITALS: BMI 28.0
== END ==
PROVIDERS: PCP Family Medicine; Referring Provider Urology; Visit Provider Urology
DX: R36.9 Urethral discharge, unspecified (principal)
CPT/HCPCS: 87070; 87077; 87205

== ENCOUNTER 2020-09-29 13:15 | Outpatient (RCR) | payer OTHER, SELFPAY ==
[2020-04-28 15:14] VITALS: BMI 30.6
[2020-09-15 13:01] VITALS: BP 131/90; PULSE 87; RESP 16; TEMP 36.8; BMI 28.0
--- NOTE | 2020-09-15 16:01 | PCM.WC.HP ---
(1) Scrotal abscess Status: Acute Code(s): N49.2 - Inflammatory disorders of scrotum (2) Delayed wound healing Status: Acute Code(s): T14.8XXD - Other injury of unspecified body region, subsequent encounter (3) Diabetes Status: Acute Qualifiers: Diabetes mellitus type: type 2 Code(s): E11.9 - Type 2 diabetes mellitus without complications (4) Hypertension Status: Chronic Code(s): I10 - Essential (primary) hypertension (5) History of prostate cancer Status: Acute Code(s): Z85.46 - Personal history of malignant neoplasm of prostate History of Present Illness Date of Service: 09/15/20 Chief Complaint: scrotal abscess s/p incision and drainage 08/22/20 History of Wound: This is a 59-year-old -[place] male who presents to the wound healing center today for follow-up of a scrotal abscess incision and drainage by his urologist Dr. Stevens on 08/22/2020. He has a past medical history as listed above significant for diabetes, most recent A1c controlled on Metformin, hypertension, obesity, and history of prostate cancer following up with Dr. Kaplan. Patient was admitted to [facility] from 08/22/2020 through 08/26/2020 after his scrotal abscess incision and drainage. He was discharged home on Cipro and cultures were taken at that time which showed positive anaerobic bacteria. The patient then presented to the emergency department on 09/07/2020 for penile discharge and swelling, a pelvis CT was done which was essentially negative for anything acute and he was discharged home on doxycycline and Flagyl. The patient has been doing Kerlix dressing changes since and follows up today for wound care. He states that he is no longer having any penile drainage and that the swelling has improved. He denies any systemic signs of infection today such as fever or chills. He denies any other acute concerns. Past medical, family, and social history reviewed and not pertinent to the current visit and all other systems reviewed and negative with exception of those listed above. Past Medical History Past Medical History: Chronic Problems (Last Reviewed 08/22/20 @ 18:[address] Ramón Stevens MD) Hypertension (Chronic) Surgical History: no surgical history Allergies/Adverse Reactions: Allergies No Known Allergies Allergy (Verified 09/07/20 13:25) Home Medications: Ambulatory Orders Medication Instructions Recorded Atorvastatin Calcium [Lipitor] 20 mg PO QHS 04/28/20 Metformin HCl [Glucophage] 500 mg PO BID 04/28/20 Amlodipine Besylate 10 mg PO DAILY 05/25/20 Tamsulosin HCl [Flomax] 0.4 mg PO BID #60 cap 07/30/20 Naproxen 500 mg PO BID 08/22/20 Tamsulosin HCl 0.4 mg PO BID #60 capsule 09/01/20 Smoking Status: Never smoker Review of Systems Constitutional: Denies: Chills, Fever, Weight Change Eyes: Denies: Pain, Vision Change HEENT: Denies: Difficulty Hearing, Difficulty Swallowing, Sinus Congestion Cardiovascular: Denies: Chest Pain, Palpitations Respiratory: Denies: Cough, Shortness of Breath Gastrointestinal: Denies: Diarrhea, Nausea, Vomiting Genitourinary: Denies: Dysuria, Hematuria Skin: Reports: Wounds - See HPI Endocrine: Denies: Heat/ Cold Intolerance, Polydipsia, Polyuria Hematologic/ Lymphatic: Denies: Easy Bruising, Easy Bleeding - Physical Exam Vital Signs Temp Pulse Resp BP 98.3 F 87 16 131/90 H 09/15/20 13:01 09/15/20 13:01 09/15/20 13:01 09/15/20 13:01 General: Alert, Oriented x3, Cooperative, No apparent distress HEENT: Atraumatic Oral: Moist Mucosa Lungs: Clear to auscultation, Normal air movement Cardiovascular: Regular rate Abdomen: Soft, Non Tender Extremities: No clubbing, No cyanosis, No edema Skin: Ulcer/ Wound - , No inguinal lymphadenopathy,see nursing documentation, scrotal wound with adherent slough, no signs of obvious infection at this time Wound Measurements and Assessment WC - Nurse 1 - General Ulcer Measurement Start: 09/15/20 13:01 Freq: Status: Active Protocol: Activity Type Activity Date Activity User E-Sign Co-Sign Detail Recorded Client Recorded Date Recorded By Document 09/15/20 13:01 MS [id number] 09/15/20 13:30 MS 09/15/20 13:01 Wound Center Nurse 1 [Ulcer Assessment] #1 scrotum -Current Size (cm) - Length 4 -Current Size (cm) - Width 3.5 -Current Size (cm) - Depth 0.1 -Total Square Cm 14.0 -Exudate Amt Small -Wound Margin Distinct, Outline Attached -Granulation Amt Medium (34-66%) -Slough/Fibrin No -Necrosis Amt Small (1-33%) -Texture (Anna-wound Skin Appearance) No Abnormality -Moisture (Anna-wound Skin Appearance No Abnormality ) -Foul Odor after Cleansing No -Anesthetic Used 4% Lidocaine Solution JESSE - Nurse 2 - General Ulcer CM Notes Start: 09/15/20 13:01 Freq: Status: Active Protocol: Activity Type Activity Date Activity User E-Sign Co-Sign Detail Recorded Client Recorded Date Recorded By Document 09/15/20 13:47 MW [id number] 09/15/20 13:54 MW 09/15/20 13:47 Wound Center Nurse 2 [Procedure/Treatment] -Time 13:48 -Correct Patient Yes -Correct Side, Site, Position Yes -Correct Procedure Yes -Procedure Performed Yes -Type of Procedure Debridement -Clinical Debridement Subcutaneous -Tissue Removed Subcutaneous -Post Debridement (cm) - Length 3.6 -Post Debridement (cm) - Width 2.1 -Post Debridement (cm) - Depth 0.1 -Total Square (Post) (cm) 7.56 -Area of Debridement (cm) - Length 3.6 -Area of Debridement (cm) - Width 2.1 -Total Square (Area) (cm) 7.56 -Tunneling No -Undermining/Tunneling No -Circular Undermining No -Wound/Ulcer Outcome Not Healed -Ulcer Cleansing Not Cleansed -Foul Odor after Cleansing No -Bioengineered Tissue No -Bleeding Controlled with NA -Offloading No -Debridement - Subq, 1st 20sq cm Yes [See Physician Procedure note for Specifics] Pain Scale: 0-10 Numeric [Pain] -Is Patient Pain Free? Yes - Nurse 3 - General Ulcer D/C NN Start: 09/15/20 13:01 Freq: Status: Active Protocol: Activity Type Activity Date Activity User E-Sign Co-Sign Detail Recorded Client Recorded Date Recorded By Document 09/15/20 14:05 MW [id number] 09/15/20 14:06 MW 09/15/20 14:05 Wound Care Nurse 3 [Wound Dressing] #1 scrotum -Ulcer Cleansing Rinsed/ Irrigated with Saline -Foul Odor after Cleansing No -Negative Pressure Wound Therapy N/A -Primary Dressing Applied Silvercel -Other Covering abd -Silvercel 1 [Post Procedure Tolerated] -Treatment Response Procedure Tolerated Well Pain Scale: 0-10 Numeric [Pain] -Is Patient Pain Free? Yes Teaching: Wound Center [Wound Center Education] (Items with an * have Printed Materials Available- Please identify what is given to patient under the Teaching materials given to patient and caregiver Section. Dressing Your Wound -Person Taught Patient -Teaching Method Discussion -Response to teaching Verbalize understanding WC - Visit Discharge [Visit Discharge Information] -Discharge Condition Stable -Ambulatory Status Ambulatory -Transportation Private Auto -Accompanied by self -Medication Reconcilliation completed No & provided to patient/care provider -Clinical Summary of Care Provided Yes Lymphatic: No Cervical, Supraclavicular, or Inguinal Adenopathy Neurological: Neuro grossly intact Psych/Mental Status: Normal Affect, Appropriate, Alert and oriented to time, place, person, mood and affect Debridement Note Post-Debridement Measurements/Treatment WC - Nurse 2 - General Ulcer CM Notes Start: 09/15/20 13:01 Freq: Status: Active Protocol: Activity Type Activity Date Activity User E-Sign Co-Sign Detail Recorded Client Recorded Date Recorded By Document 09/15/20 13:47 MW [id number] 09/15/20 13:54 MW 09/15/20 13:47 Wound Center Nurse 2 #1 scrotum -Time 13:48 -Correct Patient Yes -Correct Side, Site, Position Yes -Correct Procedure Yes -Procedure Performed Yes -Type of Procedure Debridement -Clinical Debridement Subcutaneous -Tissue Removed Subcutaneous -Post Debridement (cm) - Length 3.6 -Post Debridement (cm) - Width 2.1 -Post Debridement (cm) - Depth 0.1 -Total Square (Post) (cm) 7.56 -Area of Debridement (cm) - Length 3.6 -Area of Debridement (cm) - Width 2.1 -Total Square (Area) (cm) 7.56 -Tunneling No -Undermining/Tunneling No -Circular Undermining No -Wound/Ulcer Outcome Not Healed -Ulcer Cleansing Not Cleansed -Foul Odor after Cleansing No -Bioengineered Tissue No -Bleeding Controlled with NA -Offloading No -Debridement - Subq, 1st 20sq cm Yes Pain Scale: 0-10 Numeric Is Patient Pain Free? Yes JESSE - Nurse 3 - General Ulcer D/C NN Start: 09/15/20 13:01 Freq: Status: Active Protocol: Activity Type Activity Date Activity User E-Sign Co-Sign Detail Recorded Client Recorded Date Recorded By Document 09/15/20 14:05 MW [id number] 09/15/20 14:06 MW 09/15/20 14:05 Wound Care Nurse 3 #1 scrotum -Ulcer Cleansing Rinsed/ Irrigated with Saline -Foul Odor after Cleansing No -Negative Pressure Wound Therapy N/A -Primary Dressing Applied Silvercel -Other Covering abd -Silvercel 1 Treatment Response Procedure Tolerated Well Pain Scale: 0-10 Numeric Is Patient Pain Free? Yes Teaching: Wound Center Dressing Your Wound -Person Taught Patient -Teaching Method Discussion -Response to teaching Verbalize understanding WC - Visit Discharge Discharge Condition Stable Ambulatory Status Ambulatory Transportation Private Auto Accompanied by self Medication Reconcilliation completed & No provided to patient/care provider Clinical Summary of Care Provided Yes Wound debrided: Scrotal wound status post scrotal abscess incision and drainage Laterality: Left Type of Debridement: Excisional debridement Anesthesia Used: 5% Lidocaine Gel Depth: in the subcutaneous layer Percentage of wound debrided: 100 Instrument Used: 5mm curette Tissue Removed: Slough and devitalized tissue Severity: Fat Layer Exposed Amount of bleeding with debridement: Mild Bleeding Controlled with: Pressure Patient tolerated procedure well Assessment/Plan Active Problems (Last Reviewed 08/22/20 @ 18:[address] Ramón Stevens MD) Scrotal abscess (Acute) Delayed wound healing (Acute) Diabetes (Acute) Hypertension (Chronic) History of prostate cancer (Acute) Assessment: See above diagnoses Plan: The patient was seen and examined at the wound center today and was updated on the plan of care. A subcutaneous debridement was performed today. The patient tolerated the procedure well. The patients wound care will consist of: Application of moistened silver cell cover with ABD change daily and as needed. Wound cultures were collected. Baseline bloodwork reviewed from recent hospitalization. Patient educated on the importance of diet on wound healing and instructed to increase protein and vitamin C intake. Patient verbalized understanding. Patient will follow up at wound healing center in one week or sooner if needed. This note was generated with [employer]ux[employer] software. It may contain incorrect words, spelling, and punctuation that were not noted in checking the note before signing. 35 minutes was spent today educating patient, physically examining patient, and reviewing prior records. Office Visits / Consults: [id number] OV L4 Est [id number]: [id number] Maday subq tissue 20 sq cm/<
[2020-09-22 13:08] VITALS: BP 123/86; RESP 16; TEMP 37; BMI 28.0
--- NOTE | 2020-09-22 16:21 | PN.PCM_ITS ---
(1) Scrotal abscess Status: Acute Code(s): N49.2 - Inflammatory disorders of scrotum (2) Delayed wound healing Status: Acute Code(s): T14.8XXD - Other injury of unspecified body region, subsequent encounter (3) Diabetes Status: Acute Qualifiers: Diabetes mellitus type: type 2 Code(s): E11.9 - Type 2 diabetes mellitus without complications (4) Hypertension Status: Chronic Code(s): I10 - Essential (primary) hypertension (5) History of prostate cancer Status: Acute Code(s): Z85.46 - Personal history of malignant neoplasm of prostate Type of Wound Date of Service: 09/22/20 Chief Complaint: scrotal abscess s/p incision and drainage 08/22/20 History of Wound: This is a 59-year-old -Irish male who presents to [facility] wound healing center today for follow-up of a scrotal abscess incision and drainage by his urologist Dr. Stevens on 08/22/2020. He has a past medical history as listed above significant for diabetes, most recent A1c controlled on Metformin, hypertension, obesity, and history of prostate cancer following up with Dr. Kaplan. Patient was admitted to [facility] from 08/22/2020 through 08/26/2020 after his scrotal abscess incision and drainage. He was discharged home on Cipro and cultures were taken at that time which showed positive anaerobic bacteria. The patient then presented to the emergency department on 09/07/2020 for penile discharge and swelling, a pelvis CT was done which was essentially negative for anything acute and he was discharged home on doxycycline and Flagyl. The patient has been doing Kerlix dressing changes since and follows up today for wound care. He states that he is no longer having any penile drainage and that the swelling has improved. He denies any systemic signs of infection today such as fever or chills. He denies any other acute concerns. Past medical, family, and social history reviewed and not pertinent to the current visit and all other systems reviewed and negative with exception of those listed above. Progress of Wound: Wound size has improved, stable, no new concerns. Denies any signs of infection at this time. - Physical Exam Vital Signs Temp Pulse Resp BP 98.6 F 87 16 123/86 H 09/22/20 13:08 09/15/20 13:09/22/20 13:08 09/22/20 13:08 General: Alert, Oriented x3, Cooperative, No apparent distress HEENT: Atraumatic Oral: Moist Mucosa Lungs: Clear to auscultation, Normal air movement Cardiovascular: Regular rate Abdomen: Soft Extremities: No clubbing, No cyanosis, No edema Skin: Ulcer/ Wound - See nursing documentation, slough and devitalized tissue present. No signs of infection at this time. Wound Measurements and Assessment - Nurse 1 - General Ulcer Measurement Start: 09/15/20 13:01 Freq: Status: Active Protocol: Activity Type Activity Date Activity User E-Sign Co-Sign Detail Recorded Client Recorded Date Recorded By Document 09/22/20 13:08 MS [id number] 09/22/20 13:23 MS 09/22/20 13:08 Wound Center Nurse 1 [Ulcer Assessment] #1 scrotum -Current Size (cm) - Length 3.2 -Current Size (cm) - Width 1 -Current Size (cm) - Depth 0.1 -Total Square Cm 3.2 -Exudate Amt Small -Exudate Type Serosanguineous -Wound Margin Distinct, Outline Attached -Granulation Amt Medium (34-66%) -Granulation Quality Red -Necrosis Amt Medium (34-66%) -Necrotic Tissue Type Adherent Slough -Texture (Anna-wound Skin Appearance) No Abnormality -Moisture (Anna-wound Skin Appearance No Abnormality ) -Color (Anna-wound Skin Appearance) No Abnormality -Temperature (Anna-wound Skin No Abnormality Appearance) (Pt Warm) -Tenderness on Palpation (Anna-wound No Skin Appearance) -Ulcer Cleansing Rinsed/ Irrigated with Saline -Foul Odor after Cleansing No -Anesthetic Used 4% Lidocaine Solution - Nurse 2 - General Ulcer CM Notes Start: 09/15/20 13:01 Freq: Status: Active Protocol: Activity Type Activity Date Activity User E-Sign Co-Sign Detail Recorded Client Recorded Date Recorded By Document 09/22/20 13:44 MW [id number] 09/22/20 13:47 MW 09/22/20 13:44 Wound Center Nurse 2 [Procedure/Treatment] -Time 13:44 -Correct Patient Yes -Correct Side, Site, Position Yes -Correct Procedure Yes -Procedure Performed Yes -Type of Procedure Debridement -Clinical Debridement Subcutaneous -Tissue Removed Subcutaneous -Post Debridement (cm) - Length 2.8 -Post Debridement (cm) - Width 1.3 -Post Debridement (cm) - Depth 0.1 -Total Square (Post) (cm) 3.64 -Area of Debridement (cm) - Length 2.8 -Area of Debridement (cm) - Width 1.3 -Total Square (Area) (cm) 3.64 -Tunneling No -Undermining/Tunneling No -Circular Undermining No -Wound/Ulcer Outcome Not Healed -Ulcer Cleansing Rinsed/ Irrigated with Saline -Foul Odor after Cleansing No -Bioengineered Tissue No -Bleeding Controlled with Pressure -Offloading No -Treatment Response Procedure Tolerated Well -Debridement - Subq, 1st 20sq cm Yes [See Physician Procedure note for Specifics] Pain Scale: 0-10 Numeric [Pain] -Is Patient Pain Free? Yes - Nurse 3 - General Ulcer D/C NN Start: 09/15/20 13:01 Freq: Status: Active Protocol: Activity Type Activity Date Activity User E-Sign Co-Sign Detail Recorded Client Recorded Date Recorded By Document 09/22/20 13:52 MS [id number] 09/22/20 13:53 MS 09/22/20 13:52 Wound Care Nurse 3 [Wound Dressing] #1 scrotum -Ulcer Cleansing Rinsed/ Irrigated with Saline -Foul Odor after Cleansing No -Primary Dressing Applied Silvercel -Primary Dressing Covered/Secured Dry Gauze with -Silvercel 1 Pain Scale: 0-10 Numeric [Pain] -Is Patient Pain Free? Yes - Visit Discharge [Visit Discharge Information] -Discharge Condition Stable -Ambulatory Status Ambulatory -Medication Reconcilliation completed No & provided to patient/care provider -Clinical Summary of Care Provided Yes Neurological: Neuro grossly intact Psych/Mental Status: Normal Affect, Appropriate, Alert and oriented to time, pl gaurang, person, mood and affect Debridement Note Post-Debridement Measurements/Treatment WC - Nurse 2 - General Ulcer CM Notes Start: 09/15/20 13:01 Freq: Status: Active Protocol: Activity Type Activity Date Activity User E-Sign Co-Sign Detail Recorded Client Recorded Date Recorded By Document 09/15/20 13:47 MW [id number] 09/15/20 13:54 MW Document 09/22/20 13:44 MW [id number] 09/22/20 13:47 MW 09/15/20 09/22/20 13:47 13:44 Wound Center Nurse 2 #1 scrotum -Time 13:48 13:44 -Correct Patient Yes Yes -Correct Side, Site, Position Yes Yes -Correct Procedure Yes Yes -Procedure Performed Yes Yes -Type of Procedure Debridement Debridement -Clinical Debridement Subcutaneous Subcutaneous -Tissue Removed Subcutaneous Subcutaneous -Post Debridement (cm) - Length 3.6 2.8 -Post Debridement (cm) - Width 2.1 1.3 -Post Debridement (cm) - Depth 0.1 0.1 -Total Square (Post) (cm) 7.56 3.64 -Area of Debridement (cm) - Length 3.6 2.8 -Area of Debridement (cm) - Width 2.1 1.3 -Total Square (Area) (cm) 7.56 3.64 -Tunneling No No -Undermining/Tunneling No No -Circular Undermining No No -Wound/Ulcer Outcome Not Healed Not Healed -Ulcer Cleansing Not Cleansed Rinsed/ Irrigated with Saline -Foul Odor after Cleansing No No -Bioengineered Tissue No No -Bleeding Controlled with NA Pressure -Offloading No No -Treatment Response Procedure Tolerated Well -Debridement - Subq, 1st 20sq cm Yes Yes Pain Scale: 0-10 Numeric Is Patient Pain Free? Yes Yes - Nurse 3 - General Ulcer D/C NN Start: 09/15/20 13:01 Freq: Status: Active Protocol: Activity Type Activity Date Activity User E-Sign Co-Sign Detail Recorded Client Recorded Date Recorded By Document 09/15/20 14:05 MW [id number] 09/15/20 14:06 MW Document 09/22/20 13:52 MS [id number] 09/22/20 13:53 MS 09/15/20 09/22/20 14:05 13:52 Wound Care Nurse 3 #1 scrotum -Ulcer Cleansing Rinsed/ Rinsed/ Irrigated with Irrigated with Saline Saline -Foul Odor after Cleansing No No -Negative Pressure Wound Therapy N/A -Primary Dressing Applied Silvercel Silvercel -Primary Dressing Covered/Secured with Dry Gauze -Other Covering abd -Silvercel 1 1 Treatment Response Procedure Tolerated Well Pain Scale: 0-10 Numeric Is Patient Pain Free? Yes Yes Teaching: Wound Center Dressing Your Wound -Person Taught Patient -Teaching Method Discussion -Response to teaching Verbalize understanding WC - Visit Discharge Discharge Condition Stable Stable Ambulatory Status Ambulatory Ambulatory Transportation Private Auto Accompanied by self Medication Reconcilliation completed & No No provided to patient/care provider Clinical Summary of Care Provided Yes Yes Wound debrided: Wound to left scrotum Laterality: Left Type of Debridement: Excisional debridement Anesthesia Used: 4% Lidocaine Solution Depth: in the subcutaneous layer Percentage of wound debrided: 100 Instrument Used: 5mm curette Tissue Removed: Slough and devitalized tissue Severity: Fat Layer Exposed Amount of bleeding with debridement: Mild Bleeding Controlled with: Pressure Patient tolerated procedure well Assessment/Plan Active Problems (Last Reviewed 08/22/20 @ 18:[address] Ramón Stevens MD) Scrotal abscess (Acute) Delayed wound healing (Acute) Diabetes (Acute) Hypertension (Chronic) History of prostate cancer (Acute) Assessment: See above diagnoses Plan: The patient was seen and examined at the wound center today and was updated on the plan of care. A subcutaneous debridement was performed today. The patient tolerated the procedure well. The patients wound care will consist of: Application of moistened silver cell cover with ABD change daily and as needed. Wound cultures were collected prior and showed skin contamination. Baseline bloodwork reviewed from recent hospitalization. Patient educated on the importance of diet on wound healing and instructed to increase protein and vitamin C intake. Patient verbalized understanding. Patient will follow up at wound healing center in one week or sooner if needed. This note was generated with deltamethod dictation software. It may contain incorrect words, spelling, and punctuation that were not noted in checking the note before signing. 35 minutes was spent today educating patient, physically examining patient, and reviewing prior records. [id number]-[id number]: [id number] Maday subq tissue 20 sq cm/<
[2020-09-29 13:24] VITALS: BP 126/94; PULSE 104; RESP 16; TEMP 36.3; BMI 28.0
--- NOTE | 2020-09-29 16:23 | PN.PCM_ITS ---
(1) Scrotal abscess Status: Acute Code(s): N49.2 - Inflammatory disorders of scrotum (2) Delayed wound healing Status: Acute Code(s): T14.8XXD - Other injury of unspecified body region, subsequent encounter (3) Diabetes Status: Acute Qualifiers: Diabetes mellitus type: type 2 Code(s): E11.9 - Type 2 diabetes mellitus without complications (4) Hypertension Status: Chronic Code(s): I10 - Essential (primary) hypertension (5) History of prostate cancer Status: Acute Code(s): Z85.46 - Personal history of malignant neoplasm of prostate Type of Wound Date of Service: 09/29/20 Chief Complaint: scrotal abscess s/p incision and drainage 08/22/20 History of Wound: This is a 59-year-old -Armenian male who presents to [facility] wound healing center today for follow-up of a scrotal abscess incision and drainage by his urologist Dr. Stevens on 08/22/2020. He has a past medical history as listed above significant for diabetes, most recent A1c controlled on Metformin, hypertension, obesity, and history of prostate cancer following up with Dr. Kaplan. Patient was admitted to [facility] from 08/22/2020 through 08/26/2020 after his scrotal abscess incision and drainage. He was discharged home on Cipro and cultures were taken at that time which showed positive anaerobic bacteria. The patient then presented to the emergency department on 09/07/2020 for penile discharge and swelling, a pelvis CT was done which was essentially negative for anything acute and he was discharged home on doxycycline and Flagyl. The patient has been doing Kerlix dressing changes since and follows up today for wound care. He states that he is no longer having any penile drainage and that the swelling has improved. He denies any systemic signs of infection today such as fever or chills. He denies any other acute concerns. Past medical, family, and social history reviewed and not pertinent to the current visit and all other systems reviewed and negative with exception of those listed above. Progress of Wound: Wound size has improved significantly, stable, no new concerns. Denies any signs of infection at this time. Patient would like discharge from the wound healing center today due to the fact that he is resuming work and will not be able to attend any appointments - Physical Exam Vital Signs Temp Pulse Resp BP 97.3 F L 104 H 16 126/94 H 09/29/20 13:24 09/29/20 13:24 09/29/20 13:24 09/29/20 13:24 General: Alert, Oriented x3, Cooperative, No apparent distress HEENT: Atraumatic Oral: Moist Mucosa Lungs: Clear to auscultation, Normal air movement Cardiovascular: Regular rate Abdomen: Soft Skin: Ulcer/ Wound - See nursing documentation, slough and devitalized tissue present left scrotal nonhealing wound, no signs of obvious infection Wound Measurements and Assessment - Nurse 1 - General Ulcer Measurement Start: 09/15/20 13:01 Freq: Status: Active Protocol: Activity Type Activity Date Activity User E-Sign Co-Sign Detail Recorded Client Recorded Date Recorded By Document 09/29/20 13:24 MS [id number] 09/29/20 13:33 MS 09/29/20 13:24 Wound Center Nurse 1 [Ulcer Assessment] #1 scrotum -Current Size (cm) - Length 1 -Current Size (cm) - Width 0.5 -Current Size (cm) - Depth 0.1 -Total Square Cm 0.5 -Exudate Amt Small -Exudate Type Serosanguineous -Wound Margin Distinct, Outline Attached -Granulation Amt Small (1-33%) -Texture (Anna-wound Skin Appearance) No Abnormality -Moisture (Anna-wound Skin Appearance No Abnormality ) -Color (Anna-wound Skin Appearance) No Abnormality -Temperature (Anna-wound Skin No Abnormality Appearance) (Pt Warm) -Tenderness on Palpation (Anna-wound No Skin Appearance) -Ulcer Cleansing Rinsed/ Irrigated with Saline -Foul Odor after Cleansing No -Anesthetic Used 4% Lidocaine Solution - Nurse 2 - General Ulcer CM Notes Start: 09/15/20 13:01 Freq: Status: Active Protocol: Activity Type Activity Date Activity User E-Sign Co-Sign Detail Recorded Client Recorded Date Recorded By Document 09/29/20 14:02 MW [id number] 09/29/20 16:05 MW 09/29/20 14:02 Wound Center Nurse 2 [Procedure/Treatment] -Time 14:00 -Correct Patient Yes -Correct Side, Site, Position Yes -Correct Procedure Yes -Procedure Performed Yes -Type of Procedure Debridement -Clinical Debridement Subcutaneous -Tissue Removed Subcutaneous -Post Debridement (cm) - Length 1.5 -Post Debridement (cm) - Width 0.5 -Post Debridement (cm) - Depth 0.1 -Total Square (Post) (cm) 0.75 -Area of Debridement (cm) - Length 1.5 -Area of Debridement (cm) - Width 0.5 -Total Square (Area) (cm) 0.75 -Tunneling No -Undermining/Tunneling No -Circular Undermining No -Wound/Ulcer Outcome Not Healed -Ulcer Cleansing Rinsed/ Irrigated with Saline -Foul Odor after Cleansing No -Bioengineered Tissue No -Bleeding Controlled with Pressure -Offloading No -Debridement - Subq, 1st 20sq cm Yes [See Physician Procedure note for Specifics] Pain Scale: 0-10 Numeric [Pain] -Is Patient Pain Free? Yes - Nurse 3 - General Ulcer D/C NN Start: 09/15/20 13:01 Freq: Status: Active Protocol: Activity Type Activity Date Activity User E-Sign Co-Sign Detail Recorded Client Recorded Date Recorded By Document 09/29/20 14:15 MW [id number] 09/29/20 16:07 MW 09/29/20 14:15 Wound Care Nurse 3 [Wound Dressing] #1 scrotum -Ulcer Cleansing Rinsed/ Irrigated with Saline -Foul Odor after Cleansing No -Negative Pressure Wound Therapy N/A -Primary Dressing Applied Silvercel -Other Covering abd pad -Silvercel 1 [Post Procedure Tolerated] -Treatment Response Procedure Tolerated Well Pain Scale: 0-10 Numeric [Pain] -Is Patient Pain Free? Yes Teaching: Wound Center [Wound Center Education] (Items with an * have Printed Materials Available- Please identify what is given to patient under the Teaching materials given to patient and caregiver Section. Discharge Instructions -Person Taught Patient -Teaching Method Discussion, Demonstration -Response to teaching Verbalize understanding - Visit Discharge [Visit Discharge Information] -Discharge Condition Stable -Ambulatory Status Ambulatory -Transportation Private Auto -Accompanied by self -Medication Reconcilliation completed No & provided to patient/care provider -Clinical Summary of Care Provided Yes -Notes: discharged per patient request Neurological: Neuro grossly intact Psych/Mental Status: Normal Affect, Appropriate, Alert and oriented to time, place, person, mood and affect Debridement Note Post-Debridement Measurements/Treatment - Nurse 2 - General Ulcer CM Notes Start: 09/15/20 13:01 Freq: Status: Active Protocol: Activity Type Activity Date Activity User E-Sign Co-Sign Detail Recorded Client Recorded Date Recorded By Document 09/15/20 13:47 MW [id number] 09/15/20 13:54 MW Document 09/22/20 13:44 MW [id number] 09/22/20 13:47 MW Document 09/29/20 14:02 MW [id number] 09/29/20 16:05 MW 09/15/20 09/22/20 09/29/20 13:47 13:44 14:02 Wound Center Nurse 2 #1 scrotum -Time 13:48 13:44 14:00 -Correct Patient Yes Yes Yes -Correct Side, Site, Position Yes Yes Yes -Correct Procedure Yes Yes Yes -Procedure Performed Yes Yes Yes -Type of Procedure Debridement Debridement Debridement -Clinical Debridement Subcutaneous Subcutaneous Subcutaneous -Tissue Removed Subcutaneous Subcutaneous Subcutaneous -Post Debridement (cm) - Length 3.6 2.8 1.5 -Post Debridement (cm) - Width 2.1 1.3 0.5 -Post Debridement (cm) - Depth 0.1 0.1 0.1 -Total Square (Post) (cm) 7.56 3.64 0.75 -Area of Debridement (cm) - Length 3.6 2.8 1.5 -Area of Debridement (cm) - Width 2.1 1.3 0.5 -Total Square (Area) (cm) 7.56 3.64 0.75 -Tunneling No No No -Undermining/Tunneling No No No -Circular Undermining No No No -Wound/Ulcer Outcome Not Healed Not Healed Not Healed -Ulcer Cleansing Not Cleansed Rinsed/ Rinsed/ Irrigated with Irrigated with Saline Saline -Foul Odor after Cleansing No No No -Bioengineered Tissue No No No -Bleeding Controlled with NA Pressure Pressure -Offloading No No No -Treatment Response Procedure Tolerated Well -Debridement - Subq, 1st 20sq cm Yes Yes Yes Pain Scale: 0-10 Numeric Is Patient Pain Free? Yes Yes Yes WC - Nurse 3 - General Ulcer D/C NN Start: 09/15/20 13:01 Freq: Status: Active Protocol: Activity Type Activity Date Activity User E-Sign Co-Sign Detail Recorded Client Recorded Date Recorded By Document 09/15/20 14:05 MW [id number] 09/15/20 14:06 MW Document 09/22/20 13:52 MS [id number] 09/22/20 13:53 MS Document 09/29/20 14:15 MW [id number] 09/29/20 16:07 MW 09/15/20 09/22/20 09/29/20 14:05 13:52 14:15 Wound Care Nurse 3 #1 scrotum -Ulcer Cleansing Rinsed/ Rinsed/ Rinsed/ Irrigated with Irrigated with Irrigated with Saline Saline Saline -Foul Odor after Cleansing No No No -Negative Pressure Wound Therapy N/A N/A -Primary Dressing Applied Silvercel Silvercel Silvercel -Primary Dressing Covered/Secured with Dry Gauze -Other Covering abd abd pad -Silvercel 1 1 1 Treatment Response Procedure Procedure Tolerated Well Tolerated Well Pain Scale: 0-10 Numeric Is Patient Pain Free? Yes Yes Yes Teaching: Wound Center Discharge Instructions -Person Taught Patient -Teaching Method Discussion, Demonstration -Response to teaching Verbalize understanding Dressing Your Wound -Person Taught Patient -Teaching Method Discussion -Response to teaching Verbalize understanding WC - Visit Discharge Discharge Condition Stable Stable Stable Ambulatory Status Ambulatory Ambulatory Ambulatory Transportation Private Auto Private Auto Accompanied by self self Medication Reconcilliation completed & No No No provided to patient/care provider Clinical Summary of Care Provided Yes Yes Yes Notes: discharged per patient request Wound debrided: Left scrotal nonhealing wound Laterality: Left Type of Debridement: Excisional debridement Anesthesia Used: 5% Lidocaine Gel Depth: in the subcutaneous layer Percentage of wound debrided: 100 Instrument Used: 5mm curette Tissue Removed: Slough and devitalized tissue Severity: Fat Layer Exposed Amount of bleeding with debridement: Mild Bleeding Controlled with: Pressure Patient tolerated procedure well Assessment/Plan Active Problems (Last Reviewed 08/22/20 @ 18:[address] Ramón Stevens MD) Scrotal abscess (Acute) Delayed wound healing (Acute) Diabetes (Acute) Hypertension (Chronic) History of prostate cancer (Acute) Assessment: See above diagnoses Plan: The patient was seen and examined at the wound center today and was updated on the plan of care. A subcutaneous debridement was performed today. The patient tolerated the procedure well. The patients wound care will consist of: Application of moistened silver cell cover with ABD change daily and as needed. Wound cultures were collected prior and showed skin contamination. Baseline bloodwork reviewed from recent hospitalization. Patient educated on the importance of diet on wound healing and instructed to increase protein and vitamin C intake. Patient verbalized understanding. Patient will be discharged from wound healing center today due to his request as he is returning from work and will be unable to attend any further appointments. Discussed with patient that if any signs of infection occur he needs to seek emergent medical attention. This note was generated with hoozin dictation software. It may contain incorrect words, spelling, and punctuation that were not noted in checking the note before signing. 35 minutes was spent today educating patient, physically examining patient, and reviewing prior records. [id number]: [id number] Maday subq tissue 20 sq cm/<
== END 2020-10-14 23:59 ==
LOC: WC 13:15
PROVIDERS: PCP Family Medicine; Visit Provider Nurse Practitioner Family
DX: N49.2 Inflammatory disorders of scrotum (principal); E11.9 Type 2 diabetes mellitus without complications; I10 Essential (primary) hypertension; Z85.46 Personal history of malignant neoplasm of prostate; T81.89XA Other complications of procedures, not elsewhere classified, initial encounter; Y83.9 Surgical procedure, unspecified as the cause of abnormal reaction of the patient, or of later complication, without mention of misadventure at the time of the procedure; E66.9 Obesity, unspecified; Z79.84 Long term (current) use of oral hypoglycemic drugs; Z79.899 Other long term (current) drug therapy
CPT/HCPCS: 11042; 87070; 87075; 87077; 87205; 99213; G0463

== ENCOUNTER 2021-06-12 15:31 | Emergency (ER) | payer OTHER, SELFPAY ==
[2020-04-28 15:14] VITALS: BMI 30.6
[2021-06-12 15:33] VITALS: BP 140/86; PULSE 65; RESP 16; TEMP 36.6; O2SAT 99; BMI 29.7
[2021-06-12 16:07] VITALS: BMI 29.7
--- NOTE | 2021-06-12 16:23 | CT_ITS ---
INDICATION: abdominal pain EXAMINATION: CT Abdomen And Pelvis W/ Contrast Injection TECHNIQUE: Helically acquired images were obtained of the abdomen and pelvis after IV contrast. A radiation dose optimization technique was used for this scan. IV Contrast dosage and agent: IV 100mL [id number] Oral contrast: None. COMPARISON: None. FINDINGS: Visualized lung bases: Unremarkable Liver: Unremarkable Gallbladder: Unremarkable Spleen: Unremarkable Pancreas: Unremarkable Adrenal Glands: Unremarkable Kidneys: Unremarkable Vasculature: Unremarkable GI Tract: Unremarkable Lymphadenopathy: None Peritoneum: No ascites. Bladder: Circumferential bladder wall thickening with surrounding mesenteric fat stranding. Reproductive organs: Unremarkable Bones/Soft tissues: No suspicious osseous or soft tissue lesions CT/Abdomen/Pelvis W IV Cont ONLY IMPRESSION: Findings suspicious for cystitis. Correlate with urinalysis. Electronically Signed: Des Carr MD at 19:01 EST Tel , Service support ,
--- NOTE | 2021-06-12 16:25 | ED.VIS.GI ---
HPI HPI - GI History of Present Illness Chief Complaint: Weakness Informant: patient and spouse/S.O. Abdominal Pain/Flank Pain Onset: Weeks Context: Gradual Onset Timing: Continuous Location: Diffuse Current Severity: Mild Maximum Severity: Moderate Nausea/Vomiting/Emesis GI Symptom: Positive for Nausea; Negative for Vomiting Diarrhea/Melena/Hematochezia GI Symptom: Negative for Diarrhea, Melena and Hematochezia Associated Symptoms Associated Symptoms: Negative for Dysuria, Frequency and Hematuria Narrative Narrative: 60-year-old male history of prostate cancer acute Tober of 2019 at that time he was treated with radiation therapy. He is also a [id number] diabetic. He denies any prior abdominal surgeries. Patient states that he had abdominal pain for weeks. Associated nausea and decreased appetite. Is not been seen by anybody evaluate for this. He made appointment to see a auto carrier driver but has not seen them as of yet. Said the pain is constant across his abdomen about the level of the umbilicus may be slightly above. Nothing particular makes it better or worse. He has had very little oral intake but he is drinking water. He denies any dysuria. He had a bowel movement earlier today. He denies any fever or chills. Prior similar symptoms: Yes Recent Illness/Hospitalization: No PFSH [facility] Medical History Abnormal prostate biopsy Diabetes High cholesterol HTN (hypertension) Prostate cancer Home Medications atorvastatin 20 mg PO QHS 04/28/20 [History Last Taken Unknown] metformin 500 mg PO BID 04/28/20 [History Last Taken 08/22/20] amlodipine 10 mg PO DAILY 05/25/20 [History Last Taken 06/01/20] tamsulosin 0.4 mg PO BID #60 cap 07/30/20 [Rx Last Taken Unknown] naproxen 500 mg PO BID 08/22/20 [History Last Taken Unknown] tamsulosin 0.4 mg PO BID #60 capsule 09/01/20 [Rx Last Taken Unknown] ondansetron 4 mg PO Q6H PRN 6 Days #10 tab 06/12/21 [Rx Last Taken Unknown] pantoprazole [Protonix] 40 mg PO DAILY 30 Days #30 tab 06/12/21 [Rx Last Taken Unknown] Allergy/AdvReac Type Severity Reaction Status Date / Time No Known Allergies Allergy Verified 06/12/21 15:33 Social History Smoking Status: Never smoker ROS ROS ED ROS Narrative Nausea decreased appetite. Abdominal pain. Review of Systems ROS Unobtainable: Denies due to encephalopathy Constitutional Constitutional ED: Denies chills or fever(s) ENT ENT ED: Denies ear pain Cardiovascular Cardiovascular: Denies chest pain or palpitations Respiratory/Chest Respiratory/Chest: Denies cough or dyspnea Gastrointestinal Gastrointestinal: Reports abdominal pain and nausea; Denies constipation, diarrhea, melena or vomiting Genitourinary Genitourinary ED: Denies dysuria Musculoskeletal Musculoskeletal: Denies myalgias Integumentary Denies rash Neurologic Neurologic: Denies headache(s) Psychiatric Psychiatric: Denies depression Endocrine Endocrinology: Denies polyuria Hematologic/Lymphatic Hematologic/Lymphatic: Denies easy bruising Allergic/Immunologic Allergic/Immunologic ED: Denies urticaria EXAM Physical Exam Narrative Exam Narrative: Middle-age male at bedside. Vital signs stable afebrile. HEENT exam unremarkable. No facial droop. Moist remembers. Lungs clear to auscultation. Heart regular rhythm no murmur. Abdomen mildly distended. Soft. Diffusely tender mostly along the midportion. No rebound guarding rigidity. Positive bowel sounds. No mass. No specific right upper or right lower quadrant tenderness. Moving all 4 extremities. Nontender no edema normal motor strength. Back nontender. Neurologically is awake alert with no focal motor deficits. Const Vital Signs: 06/12/21 15:33 06/12/21 18:00 Temperature 97.9 F Temperature Source Temporal Pulse Rate 65 Respiratory Rate 16 15 Blood Pressure 140/86 H Blood Pressure Mean 104 Pulse Ox 99 Oxygen Delivery Method Room Air Positive well nourished and well developed; Negative for obese, cachectic, contractures or unkempt General Appearance ED: well developed and NAD; Negative for unkempt, cachectic, contractures or pallor Nutritional Appearance: Negative for cachectic or obese HEENT Reports moist mucous membranes normocephalic and atraumatic; Negative for trauma or tenderness Eyes PERRL and EOMs intact bilaterally Neck no lymphadenopathy, supple and no JVD General: Negative for tenderness Resp normal respiratory effort and clear to auscultation bilaterally Auscultation: Negative for rales, rhonchi or wheezes GI no masses; Negative for non-tender or non-distended Inspection: abdominal distention Auscultation: normoactive bowel sounds; Negative for hyperactive bowel sounds or hypoactive bowel sounds Palpation: soft and tender; Negative for guarding, rigid or rebound tenderness present Back/Spine no CVA tenderness General Back: Negative for CVA tenderness Extremity full ROM General Extremety ED: Negative for edema or tenderness General Extremity: Negative for edema Neuro CN's II-XII intact bilaterally and moves all extremities Sensorium / Orientation: alert, oriented to person, oriented to place and oriented to time; Negative for orientation impaired, confused, lethargic or stuporous Motor Exam: strength 5/5 throughout; Negative for general weakness Psych mental status grossly normal and thought process normal Appearance: Negative for unkempt Skin no wounds General Skin Exam: Negative for jaundice or pallor Lesions: no lesions Rashes: no rashes MDM MDM MDM Narrative Medical decision making narrative: Middle-age male with diffuse abdominal pain CT and labs are pending. Morphine for pain and Zofran for nausea. Hold IV fluids. Repeat exam patient is doing well at 8:47 PM. We went over all test results. said he supposed to be on omeprazole but has not been taking it. That may or may not be the cause of his abdominal pain would be gastritis. He will be written for Protonix for home. Zofran as needed for nausea. And follow-up with his primary care physician Dr. Delong. Lab Data Attestation: I reviewed the patient's lab results. Lab results narrative: CBC White count of 4. Hemoglobin 14.9. Platelets 266. Electrolytes chloride 111 gap 5 normal BUN and creatinine of 12 and 1 normal liver enzymes lipase is elevated 873. Urinalysis normal. CAT scan unremarkable. No signs of pancreatitis. Labs: Laboratory Results - last 24 hr 06/12/21 06/12/21 06/12/21 16:04 17:04 17:04 WBC 4.1 L RBC 4.71 Hgb 14.9 Hct 42.6 MCV 90.4 MCH 31.6 MCHC 35.0 RDW Std Deviation 46.4 H RDW Coeff of Jonathan 13.8 Plt Count 266 MPV 9.7 Immature Gran % (Auto) 0.500 Neut % (Auto) 66.9 Lymph % (Auto) 13.7 L [place] % (Auto) 16.9 H Eos % (Auto) 1.5 Baso % (Auto) 0.5 Absolute Neuts (auto) 2.7 Absolute Lymphs (auto) 0.56 L Nucleated RBC % 0 Differential Comment SEE COMMENT Diff Path Review May foll Platelet Estimate ADEQUATE RBC Morphology N CHROM Anisocytosis RARE Macrocytosis RARE Sodium 143 Potassium 3.8 Chloride 111 H Carbon Dioxide 27.0 Anion Gap 5 BUN 12 Creatinine 1.09 Estim Creat Clear Calc 69.06 Est GFR (MDRD) Af Amer 89 Est GFR (MDRD) Non-Af 74 BUN/Creatinine Ratio 11.0 Glucose 98 Calcium 9.1 Total Bilirubin 0.50 AST 9 L ALT 19 Alkaline Phosphatase 87 Total Protein 7.4 Albumin 3.4 Globulin 4.0 Albumin/Globulin Ratio 0.8 L Lipase 873 H Urine Color Yellow Urine Clarity Clear Urine pH 8.0 Ur Specific [place] 1.015 Urine Protein Negative Urine Glucose (UA) Normal Urine Ketones Negative Urine Occult Blood Negative Urine Nitrite Negative Urine Bilirubin Negative Urine Urobilinogen Normal Ur Leukocyte Esterase Negative Urine RBC 0 SEEN Urine WBC 0 SEEN Ur Squamous Epith Cells 0 SEEN Urine Bacteria 0 SEEN Urine Mucus 0 SEEN Radiography Diagnostic Testing: Clinical Impression(s) from Imaging Studies Abdomen/Pelvis CT 06/12/21 16:23 IMPRESSION: Findings suspicious for cystitis. Correlate with urinalysis. Electronically Signed: Des Carr MD at 19:01 EST Tel , Service support , Discharge Plan Triage Chief Complaint: Weakness Other Complaint: Neuro S/Sx ED Provider: Ray Fermin Dx/Rx/DC Orders Clinical Impression: Abdominal pain, History of prostate cancer Instructions: Abdominal Pain Prescriptions: New ondansetron 4 mg tablet,disintegrating 4 mg PO Q6H PRN (Reason: nausea and vomiting) 6 Days Qty: 10 RF: 0 pantoprazole [Protonix] 40 mg tablet,delayed release (DR/EC) 40 mg PO DAILY 30 Days Qty: 30 RF: 0 No Action metformin 500 MG tablet 500 mg PO BID RF: 0 atorvastatin 10 MG tablet 20 mg PO QHS RF: 0 tamsulosin 0.4 MG capsule 0.4 mg PO BID Qty: 60 RF: 1 tamsulosin 0.4 MG capsule 0.4 mg PO BID Qty: 60 RF: 4 amlodipine 10 MG tablet 10 mg PO DAILY RF: 0 naproxen 500 MG tablet 500 mg PO BID RF: 0 Primary Care Provider: Brady Delong Referrals: Brady Delong, [Primary Care Provider] - As soon as possible Activity Restrictions/Additional Instructions: Follow-up with your primary care provider. Your labs today really unremarkable as was your CAT scan. Start the Protonix in case this may be inflammation in your stomach called gastritis. Use the Zofran as needed for nausea. Return if feeling worse. Disposition Disposition: Home, Self Care
[2021-06-12] MEDS: morphine 8 MG/ML Syringe 6 MG IV (17:01)
[2021-06-12] MEDS: Ondansetron 4 MG/2 ML Vial IV (17:01)
[2021-06-12] MEDS: 0.9% Normal Saline 1,000 ML 1000 ML IV (17:02)
[2021-06-12 17:12] LABS: Absolute Lymphocyte Count 0.56 X10^3/uL (0.83-4.51); Absolute Neutrophil Count 2.7 X10^3/uL (2.0-7.7); Basophil# 0.02 X10^3/uL; Basophil% 0.5 % (0-1); Eosinophil# 0.06 X10^3/uL; Eosinophils% 1.5 % (0-5); Hematocrit 42.6 % (40-54); Hemoglobin 14.9 g/dL (13.0-16.5); Lymphocyte # 0.56 X10^3/ul (0.83-4.51); Lymphocyte % 13.7 % (19-41); Mean Corpuscular Hgb 31.6 pg (27.0-32.0); Mean Corpuscular Volume 90.4 fL (80-94); Mean Platelet Vol. 9.7 fl (6.2-12.0); Monocyte# 0.69 X10^3/uL; Monocyte% 16.9 % (0-10); NRBC Flagged by Analyzer 0 % (0-5); Neutrophil # 2.74 X10^3/uL (2.7-7.7); Neutrophil % 66.9 % (47-70); POSITIVE DIFFERENTIAL YES; Platelet Count 266 K/mm3 (150-450); RBC Distribution Width CV 13.8 % (11.6-14.6); RBC Distribution Width SD 46.4 fl (35.1-43.9); Red Blood Count 4.71 M/mm3 (4.6-6.2); White Blood Count 4.1 K/mm3 (4.4-11.0)
[2021-06-12 17:18] LABS: Differential Indicated SCAN CRITERIA MET
[2021-06-12 17:35] LABS: Bacteria 0 SEEN /hpf (None Seen); Mucous, Urine 0 SEEN /hpf (<or=2+); Red Blood Cells-Urine 0 SEEN /hpf (0-5); Squamous Epithelial Cells - UA 0 SEEN /hpf (0-5); White Blood Cells 0 SEEN /hpf (0-5)
[2021-06-12 17:42] LABS: Anisocytosis RARE; Macrocytosis RARE; Platelet Estimate ADEQUATE (ADEQ); Red Cell Morphology N CHROM NORMAL (NORM C&C)
[2021-06-12 17:43] LABS: Color, Urine Yellow (Yellow); Glucose, Dipstick Normal (Normal); Ketone-Dipstick Negative (Negative); Leukocyte Esterase-Dipstick Negative /ul (Negative); Nitrite-Dipstick Negative (Negative); Occult Blood-Urine Negative /ul (Negative); Protein-Dipstick Negative (Negative); Specific Gravity, Urine 1.015 (1.002-1.030); Urine Bilirubin Dipstick Negative (Negative); Urine Clarity Clear (Clear); Urine Urobilinogen Normal (Normal)
[2021-06-12 17:45] LABS: ALB/GLOB Ratio 0.8 RATIO (0.9-2.4); AST(SGOT) 9 U/L (15-37); Alanine Aminotransfer ALT/SGPT 19 U/L (16-61); Albumin, Serum 3.4 g/dL (3.2-5.0); Alkaline Phosphatase 87 U/L (45-117); Anion Gap 5 (5-15); BUN 12 mg/dL (7-18); Calcium,Total 9.1 mg/dL (8.5-10.1); Chloride 111 mmol/L (98-107); Creatinine, Serum 1.09 mg/dL (0.70-1.30); EST Glomerular Filtration Rate 74 mL/min (>60); Est Glom Filt Rate - Afr Amer 89 mL/min (>60); Estimated Creatinine Clearance 69.06 ml/min; Glucose 98 mg/dL (74-106); Lipase 873 U/L (73-393); Potassium 3.8 mmol/L (3.5-5.1); Protein, Total 7.4 g/dL (6.4-8.2); Sodium Level 143 mmol/L (136-145)
[2021-06-12 18:00] VITALS: RESP 15
[2021-06-12 21:02] VITALS: BP 138/74; PULSE 69; RESP 16; O2SAT 96
[2021-06-14 10:10] LABS: Pathologist Review Reviewed
== END 2021-06-12 21:02 | disposition home or self-care (01) ==
PROVIDERS: Emergency Provider Emergency Medicine; PCP Family Medicine
DX: R10.9 Unspecified abdominal pain (principal); Z85.46 Personal history of malignant neoplasm of prostate; Z92.3 Personal history of irradiation
CPT/HCPCS: 74177; 80053; 81001; 83690; 85025; 96374; 96375; 99283; J7030; Q9967; A4216; J2405

== ENCOUNTER 2021-07-26 08:35 | Outpatient (CLI) | payer OTHER, SELFPAY ==
[2020-04-28 15:14] VITALS: BMI 30.6
[2021-07-26 09:38] LABS: Absolute Lymphocyte Count 0.74 X10^3/uL (0.83-4.51); Absolute Neutrophil Count 1.6 X10^3/uL (2.0-7.7); Basophil# 0.01 X10^3/uL; Basophil% 0.3 % (0-1); Eosinophil# 0.08 X10^3/uL; Eosinophils% 2.7 % (0-5); Hemoglobin 15.1 g/dL (13.0-16.5); Lymphocyte # 0.74 X10^3/ul (0.83-4.51); Lymphocyte % 24.6 % (19-41); Mean Corp Hgb Conc 33.6 g/dL (32-36); Mean Corpuscular Hgb 31.3 pg (27.0-32.0); Mean Corpuscular Volume 93.2 fL (80-94); Mean Platelet Vol. 10.4 fl (6.2-12.0); Monocyte% 19.9 % (0-10); NRBC Flagged by Analyzer 0 % (0-5); Neutrophil # 1.57 X10^3/uL (2.7-7.7); Neutrophil % 52.2 % (47-70); Platelet Count 268 K/mm3 (150-450); RBC Distribution Width SD 48.1 fl (35.1-43.9); Red Blood Count 4.83 M/mm3 (4.6-6.2)
[2021-07-26 09:49] LABS: Erythrocyte Sedimentation Rate 9 mm/hr (0-20)
[2021-07-26 10:07] LABS: ALB/GLOB Ratio 0.9 RATIO (0.9-2.4); AST(SGOT) 5 U/L (15-37); Alanine Aminotransfer ALT/SGPT 21 U/L (16-61); Albumin, Serum 3.6 g/dL (3.2-5.0); Alkaline Phosphatase 88 U/L (45-117); Amylase 65 U/L (25-115); Anion Gap 5 (5-15); BUN 13 mg/dL (7-18); BUN/Creat Ratio 11.7 RATIO (10-20); CRP < 2.90 mg/L (0.0-3.0); Chloride 104 mmol/L (98-107); Creatinine, Serum 1.11 mg/dL (0.70-1.30); EST Glomerular Filtration Rate 72 mL/min (>60); Est Glom Filt Rate - Afr Amer 87 mL/min (>60); Globulin 4.1 g/dL (2.2-4.2); Glucose 141 mg/dL (74-106); Lipase 216 U/L (73-393); Potassium 4.2 mmol/L (3.5-5.1); Protein, Total 7.7 g/dL (6.4-8.2); Sodium Level 137 mmol/L (136-145)
== END 2021-07-26 23:59 | disposition home or self-care (01) ==
LOC: LAB 08:38
PROVIDERS: PCP Family Medicine; Visit Provider Internal Medicine Gastroenterology
DX: R10.9 Unspecified abdominal pain (principal)
CPT/HCPCS: 36415; 80053; 82150; 83036; 83690; 85025; 85652; 86140; 86301

== ENCOUNTER 2021-08-09 16:50 | Outpatient (CLI) | payer OTHER, SELFPAY ==
[2020-04-28 15:14] VITALS: BMI 30.6
--- NOTE | 2021-08-09 16:56 | MRI_ITS ---
STUDY: MR MRCP WITHOUT CONTRAST REASON FOR EXAM: Male, 60 years old. Abdominal pain TECHNIQUE: Standard MRCP technique was utilized. 3-D postprocessing images were reviewed. COMPARISON: None. FINDINGS: Gall Bladder: Normal with no distention or demonstrated fixed intraluminal filling defect. Cystic duct: Normal with no demonstrated fixed filling defect. Intrahepatic ducts: Normal visualized intrahepatic ducts with no demonstrated fixed filling defect, dilation or stricture. Common hepatic duct: Normal with no demonstrated fixed filling defect, dilation or stricture. Common bile duct: Normal with no demonstrated fixed filling defect, dilation or stricture. Pancreatic duct: Normal with no demonstrated fixed filling defect, dilation or stricture. MRI/MRCP Abdomen without Contrast IMPRESSION: Normal MR Cholangiopancreatography (MRCP). Electronically Signed: Des Carr MD at 21:39 [facility] ,
== END 2021-08-09 23:59 | disposition home or self-care (01) ==
LOC: MRI 16:56
PROVIDERS: PCP Family Medicine; Visit Provider Internal Medicine Gastroenterology
DX: R10.9 Unspecified abdominal pain (principal)
CPT/HCPCS: 74181

== ENCOUNTER → 2022-06-12 | Outpatient (CLI) | payer OTHER, SELFPAY ==
[2020-04-28 15:14] VITALS: BMI 30.6
[2022-06-12 15:09] LABS: Absolute Lymphocyte Count 0.66 X10^3/uL (0.83-4.51); Absolute Neutrophil Count 2.3 X10^3/uL (2.0-7.7); Eosinophil# 0.01 X10^3/uL; Eosinophils% 0.3 % (0-5); Hematocrit 46.8 % (40-54); Hemoglobin 16.8 g/dL (13.0-16.5); Lymphocyte # 0.66 X10^3/ul (0.83-4.51); Lymphocyte % 18.2 % (19-41); Mean Corp Hgb Conc 35.9 g/dL (32-36); Mean Corpuscular Hgb 32.6 pg (27.0-32.0); Mean Corpuscular Volume 90.9 fL (80-94); Mean Platelet Vol. 10.5 fl (6.2-12.0); Monocyte# 0.66 X10^3/uL; Monocyte% 18.2 % (0-10); NRBC Flagged by Analyzer 0 % (0-5); Neutrophil # 2.29 X10^3/uL (2.7-7.7); Platelet Count 231 K/mm3 (150-450); RBC Distribution Width SD 43.5 fl (35.1-43.9); Red Blood Count 5.15 M/mm3 (4.6-6.2); White Blood Count 3.6 K/mm3 (4.4-11.0)
== END | disposition home or self-care (01) ==
LOC: BIMLAB 11:38
PROVIDERS: PCP Family Medicine; Visit Provider Family Medicine
DX: R05.9 Cough, unspecified (principal)
CPT/HCPCS: 36415; 85025

== ENCOUNTER → 2022-08-02 | Outpatient (CLI) | payer OTHER, SELFPAY ==
[2020-04-28 15:14] VITALS: BMI 30.6
[2022-08-02 12:11] LABS: Absolute Lymphocyte Count 0.79 X10^3/uL (0.83-4.51); Absolute Neutrophil Count 2.4 X10^3/uL (2.0-7.7); Basophil# 0.02 X10^3/uL; Basophil% 0.5 % (0-1); Eosinophil# 0.04 X10^3/uL; Hematocrit 43.9 % (40-54); Lymphocyte # 0.79 X10^3/ul (0.83-4.51); Lymphocyte % 20.3 % (19-41); Mean Corp Hgb Conc 34.2 g/dL (32-36); Mean Corpuscular Hgb 32.2 pg (27.0-32.0); Mean Corpuscular Volume 94.2 fL (80-94); Monocyte% 15.4 % (0-10); NRBC Flagged by Analyzer 0 % (0-5); Neutrophil # 2.42 X10^3/uL (2.7-7.7); Neutrophil % 62.3 % (47-70); Platelet Count 291 K/mm3 (150-450); RBC Distribution Width CV 13.7 % (11.6-14.6); RBC Distribution Width SD 47.7 fl (35.1-43.9); Red Blood Count 4.66 M/mm3 (4.6-6.2); White Blood Count 3.9 K/mm3 (4.4-11.0)
[2022-08-02 12:53] LABS: ALB/GLOB Ratio 0.9 RATIO (0.9-2.4); AST(SGOT) 11 U/L (15-37); Alanine Aminotransfer ALT/SGPT 24 U/L (16-61); Albumin, Serum 3.8 g/dL (3.2-5.0); Alkaline Phosphatase 80 U/L (45-117); Anion Gap 6 (5-15); BUN 16 mg/dL (7-18); BUN/Creat Ratio 12.6 RATIO (10-20); Calcium,Total 9.1 mg/dL (8.5-10.1); Chloride 104 mmol/L (98-107); Cholesterol 227 mg/dL (200); Creatinine, Serum 1.27 mg/dL (0.70-1.30); EST Glomerular Filtration Rate 62 mL/min (>60); Est Glom Filt Rate - Afr Amer 75 mL/min (>60); Globulin 4.2 g/dL (2.2-4.2); Glucose 144 mg/dL (74-106); Hemoglobin A1c 6.1 % (3.8-5.6); High Density Lipoprotein 87 mg/dL; PSA,Total - Annual Screen 0.62 ng/mL (0.00-4.00); Potassium 4.3 mmol/L (3.5-5.1); Sodium Level 140 mmol/L (136-145); Triglycerides 90 mg/dL; Very Low Density Lipoprotein 18 mg/dL (5-40)
== END | disposition home or self-care (01) ==
LOC: BFHLAB 10:30
PROVIDERS: PCP Family Medicine; Visit Provider Family Medicine
DX: Z00.00 Encounter for general adult medical examination without abnormal findings (principal); C61 Malignant neoplasm of prostate; E11.9 Type 2 diabetes mellitus without complications
CPT/HCPCS: 36415; 80053; 80061; 83036; 84153; 85025; G0103

== ENCOUNTER → 2023-02-04 | Outpatient (CLI) | payer OTHER, SELFPAY ==
[2020-04-28 15:14] VITALS: BMI 30.6
[2023-02-04 13:34] LABS: Hemoglobin A1c 6.5 % (3.8-5.6)
[2023-02-04 14:02] LABS: AST(SGOT) 8 U/L (15-37); Alanine Aminotransfer ALT/SGPT 26 U/L (16-61); Albumin, Serum 3.5 g/dL (3.2-5.0); Alkaline Phosphatase 86 U/L (45-117); Anion Gap 6 (5-15); BUN 18 mg/dL (7-18); BUN/Creat Ratio 14.9 RATIO (10-20); Calcium,Total 8.8 mg/dL (8.5-10.1); Chloride 110 mmol/L (98-107); Cholesterol 123 mg/dL (200); Creatinine, Serum 1.21 mg/dL (0.70-1.30); EST Glomerular Filtration Rate 65 mL/min (>60); Est Glom Filt Rate - Afr Amer 79 mL/min (>60); Globulin 3.6 g/dL (2.2-4.2); Glucose 127 mg/dL (74-106); High Density Lipoprotein 64 mg/dL; PSA,Total- Diagnostic 0.34 ng/mL (0.0-4.0); Potassium 3.8 mmol/L (3.5-5.1); Protein, Total 7.1 g/dL (6.4-8.2); Sodium Level 141 mmol/L (136-145); Triglycerides 152 mg/dL; Very Low Density Lipoprotein 30 mg/dL (5-40)
[2023-02-04 14:48] LABS: Microalbumin,Random Urine 20.4 mg/L (NO RANGE EST.); Microalbumin:Creatinine Ratio 7.7 mg/g CRE (<30 mg/g CRE)
== END | disposition home or self-care (01) ==
PROVIDERS: PCP Family Medicine; Referring Provider Family Medicine; Visit Provider Family Medicine
DX: E11.9 Type 2 diabetes mellitus without complications (principal); C61 Malignant neoplasm of prostate; I10 Essential (primary) hypertension; E78.5 Hyperlipidemia, unspecified
CPT/HCPCS: 36415; 80053; 80061; 82043; 82570; 83036; 84153

== ENCOUNTER → 2023-08-23 | Outpatient (CLI) | payer OTHER, SELFPAY ==
[2020-04-28 15:14] VITALS: BMI 30.6
[2023-08-23 12:02] LABS: Absolute Lymphocyte Count 0.85 X10^3/uL (0.83-4.51); Absolute Neutrophil Count 2.7 X10^3/uL (2.0-7.7); Basophil# 0.01 X10^3/uL; Basophil% 0.2 % (0-1); Eosinophil# 0.07 X10^3/uL; Eosinophils% 1.6 % (0-5); Hematocrit 46.9 % (40-54); Lymphocyte # 0.85 X10^3/ul (0.83-4.51); Lymphocyte % 19.7 % (19-41); Mean Corp Hgb Conc 34.1 g/dL (32-36); Mean Corpuscular Hgb 31.7 pg (27.0-32.0); Mean Corpuscular Volume 93.1 fL (80-94); Mean Platelet Vol. 9.4 fl (6.2-12.0); Monocyte# 0.67 X10^3/uL; Monocyte% 15.5 % (0-10); NRBC Flagged by Analyzer 0 % (0-5); Neutrophil # 2.69 X10^3/uL (2.7-7.7); Neutrophil % 62.5 % (47-70); Platelet Count 301 K/mm3 (150-450); RBC Distribution Width CV 12.8 % (11.6-14.6); RBC Distribution Width SD 43.7 fl (35.1-43.9); Red Blood Count 5.04 M/mm3 (4.6-6.2); White Blood Count 4.3 K/mm3 (4.4-11.0)
[2023-08-23 12:20] LABS: ALB/GLOB Ratio 0.9 RATIO (0.9-2.4); AST(SGOT) 11 U/L (15-37); Alanine Aminotransfer ALT/SGPT 33 U/L (16-61); Albumin, Serum 3.9 g/dL (3.2-5.0); Alkaline Phosphatase 102 U/L (45-117); Anion Gap 4 (5-15); BUN 13 mg/dL (7-18); BUN/Creat Ratio 11.2 RATIO (10-20); Chloride 106 mmol/L (98-107); Cholesterol 188 mg/dL (200); Creatinine, Serum 1.16 mg/dL (0.70-1.30); EST Glomerular Filtration Rate 68 mL/min (>60); Est Glom Filt Rate - Afr Amer 82 mL/min (>60); Globulin 4.3 g/dL (2.2-4.2); Glucose 134 mg/dL (74-106); High Density Lipoprotein 65 mg/dL; Potassium 3.6 mmol/L (3.5-5.1); Protein, Total 8.2 g/dL (6.4-8.2); Sodium Level 140 mmol/L (136-145); Triglycerides 80 mg/dL; Very Low Density Lipoprotein 16 mg/dL (5-40)
[2023-08-23 12:29] LABS: Microalbumin,Random Urine 53.2 mg/L (NO RANGE EST.); Microalbumin:Creatinine Ratio 18.1 mg/g CRE (<30 mg/g CRE)
[2023-08-23 13:08] LABS: Hemoglobin A1c 6.4 % (3.8-5.6)
== END | disposition home or self-care (01) ==
LOC: MTLAB 10:02
PROVIDERS: PCP Family Medicine; Referring Provider Family Medicine; Visit Provider Family Medicine
DX: E11.9 Type 2 diabetes mellitus without complications (principal); C61 Malignant neoplasm of prostate; I10 Essential (primary) hypertension
CPT/HCPCS: 36415; 80053; 80061; 82043; 82570; 83036; 84153; 85025

== ENCOUNTER → 2024-03-13 | Outpatient (CLI) | payer OTHER, SELFPAY ==
[2020-04-28 15:14] VITALS: BMI 30.6
[2024-03-13 12:51] LABS: Absolute Neutrophil Count 2.6 X10^3/uL (2.0-7.7); Basophil# 0.01 X10^3/uL; Basophil% 0.2 % (0-1); Eosinophil# 0.12 X10^3/uL; Eosinophils% 2.6 % (0-5); Hematocrit 45.2 % (40-54); Hemoglobin 15.2 g/dL (13.0-16.5); Lymphocyte % 23.7 % (19-41); Mean Corp Hgb Conc 33.6 g/dL (32-36); Mean Corpuscular Hgb 31.7 pg (27.0-32.0); Mean Corpuscular Volume 94.2 fL (80-94); Mean Platelet Vol. 10.5 fl (6.2-12.0); Monocyte# 0.78 X10^3/uL; Monocyte% 16.8 % (0-10); NRBC Flagged by Analyzer 0 % (0-5); Neutrophil # 2.61 X10^3/uL (2.7-7.7); Neutrophil % 56.1 % (47-70); Platelet Count 292 K/mm3 (150-450); RBC Distribution Width CV 12.7 % (11.6-14.6); RBC Distribution Width SD 44.1 fl (35.1-43.9); White Blood Count 4.7 K/mm3 (4.4-11.0)
[2024-03-13 13:45] LABS: AST(SGOT) 17 U/L (15-37); Alanine Aminotransfer ALT/SGPT 28 U/L (16-61); Albumin, Serum 3.9 g/dL (3.2-5.0); Alkaline Phosphatase 93 U/L (45-117); Anion Gap 8 (5-15); BUN 12 mg/dL (7-18); Calcium,Total 9.3 mg/dL (8.5-10.1); Chloride 104 mmol/L (98-107); Cholesterol 143 mg/dL (200); Creatinine, Serum 1.09 mg/dL (0.70-1.30); EST Glomerular Filtration Rate 73 mL/min (>60); Est Glom Filt Rate - Afr Amer 88 mL/min (>60); Globulin 3.9 g/dL (2.2-4.2); Glucose 143 mg/dL (74-106); High Density Lipoprotein 69 mg/dL; PSA,Total- Diagnostic 0.48 ng/mL (0.0-4.0); Potassium 3.9 mmol/L (3.5-5.1); Protein, Total 7.8 g/dL (6.4-8.2); Sodium Level 139 mmol/L (136-145); Triglycerides 63 mg/dL; Very Low Density Lipoprotein 13 mg/dL (5-40)
[2024-03-13 15:10] LABS: Hemoglobin A1c 7.5 % (3.8-5.6)
== END | disposition home or self-care (01) ==
LOC: BFHLAB 09:46
PROVIDERS: PCP Family Medicine; Referring Provider Family Medicine; Visit Provider Family Medicine
DX: E11.9 Type 2 diabetes mellitus without complications (principal); C61 Malignant neoplasm of prostate; I10 Essential (primary) hypertension; E78.5 Hyperlipidemia, unspecified
CPT/HCPCS: 36415; 80053; 80061; 83036; 84153; 85025

== ENCOUNTER → 2024-03-26 | Outpatient (CLI) | payer SELFPAY ==
[2020-04-28 15:14] VITALS: BMI 30.6
== END | disposition home or self-care (01) ==
PROVIDERS: PCP Family Medicine; Referring Provider Family Medicine; Visit Provider Family Medicine
DX: R68.82 Decreased libido (principal)
CPT/HCPCS: 36415

== ENCOUNTER → 2025-03-29 | Outpatient (CLI) | payer SELFPAY ==
[2020-04-28 15:14] VITALS: BMI 30.6
[2025-03-29 12:43] LABS: Hematocrit 45.2 % (40-54); Hemoglobin 15.8 g/dL (13.0-16.5); Immature Granulocytes Count 0.020 X10^3/uL (0.0-0.0); Mean Corp Hgb Conc 35.0 g/dL (32-36); Mean Corpuscular Volume 90.9 fL (80-94); Mean Platelet Vol. 10.4 fl (6.2-12.0); NRBC Flagged by Analyzer 0 % (0-5); Platelet Count 249 K/mm3 (150-450); RBC Distribution Width CV 12.9 % (11.6-14.6); RBC Distribution Width SD 42.9 fl (35.1-43.9); Red Blood Count 4.97 M/mm3 (4.6-6.2); White Blood Count 5.1 K/mm3 (4.4-11.0)
[2025-03-29 13:06] LABS: Creatinine, Urine (random) 222.00 mg/dL (39.00-259.00); Microalbumin,Random Urine 20.2 mg/L (<20 mg/L)
[2025-03-29 13:13] LABS: Albumin, Serum 4.4 g/dL (3.4-4.8); BUN 12 mg/dL (4-19); BUN/Creat Ratio 11.4 RATIO (10-20); Glucose 164 mg/dL (70-99)
[2025-03-29 13:14] LABS: AST(SGOT) 17 U/L (<=37); Alanine Aminotransfer ALT/SGPT 24 U/L (<=46); Alkaline Phosphatase 89 U/L (40-129); Anion Gap 12 (5-15); Calcium,Total 9.4 mg/dL (7.6-11.0); Carbon Dioxide 23.1 mmol/L (21.0-32.0); Chloride 101 mmol/L (98-108); Cholesterol 160 mg/dL (<=200); Globulin 3.5 g/dL (2.2-4.2); Low Density Lipoprotein Calc. 72 mg/dL; PSA,Total- Diagnostic 0.64 ng/mL (0.00-4.00); Potassium 3.9 mmol/L (3.3-5.1); Triglycerides 101 mg/dL; Very Low Density Lipoprotein 20 mg/dL (5-40); cholesterol:hdl ratio screen 2.36
== END | disposition home or self-care (01) ==
LOC: MTLAB 09:43
PROVIDERS: PCP Family Medicine; Referring Provider Family Medicine; Visit Provider Family Medicine
DX: Z00.00 Encounter for general adult medical examination without abnormal findings (principal); C61 Malignant neoplasm of prostate; E11.9 Type 2 diabetes mellitus without complications
CPT/HCPCS: 36415; 80053; 80061; 82043; 82570; 83036; 84153; 85025